=== PATIENT | female | born 1975 | race Caucasian/White ===

== ENCOUNTER 2022-11-07 12:35 | Emergency (ER) | payer MEDICARE, OTHER, SELFPAY ==
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
[2022-11-07 12:56] VITALS: BP 140/95; PULSE 80; RESP 18; TEMP 36.8; O2SAT 97
[2022-11-07 14:09] LABS: Basophils Absolute Auto 0.1 K/mm3 (0.0-0.1); Basophils Percent Auto 0.7 % (0.2-1.2); Eosinophils Absolute Auto 0.4 K/mm3 (0-0.3); Eosinophils Percent Auto 4.2 % (0-4.4); Hematocrit 41.5 % (37.0-47.0); Hemoglobin 13.7 g/dL (12.0-15.0); Immature Granulocyte Absolute 0.07 K/mm3 (0.00-0.031); Immature Granulocyte Percent A 0.8 % (0-0.5); Lymphocytes Absolute Auto 2.41 K/mm3 (0.9-3.2); Lymphocytes Percent Auto 26.8 % (18.3-44.2); Mean Corpuscular Hemoglobin 29.7 pg (26-34); Mean Platelet Volume 10.3 fl (7.4-10.4); Monocytes Absolute Auto 0.6 K/mm3 (0.1-0.6); Neutrophils Absolute Auto 5.4 K/mm3 (1.3-6.7); Neutrophils Percent Auto 60.5 % (45.5-73.1); Platelet Count Result 232 k/mm3 (150-375); Red Blood Count 4.61 M/mm3 (4.2-5.4); Red Cell Distribution Width 13.2 % (11.5-14.5)
[2022-11-07 14:20] LABS: Alanine Aminotransferase 24 U/L (6-35); Albumin Level 4.5 g/dL (3.5-5.1); Alkaline Phosphatase 72 U/L (38-126); Anion Gap 7 mmol/L (8-16); Aspartate Amino Transferase 30 U/L (14-36); Bilirubin,Total 0.4 mg/dL (0.2-1.3); Blood Urea Nitrogen 15 mg/dL (7-17); Calcium 9.4 mg/dL (8.4-10.2); Carbon Dioxide 37 mmol/L (22-30); Chloride 96 mmol/L (98-107); Estimated CRCL calculation 100 ml/min; Estimated Glomerular Filt Rate > 60; Glucose 138 mg/dL (65-110); Potassium 3.6 mmol/L (3.4-5.0); Sodium 140 mmol/L (137-145)
[2022-11-07 15:41] LABS: Appearance Urine Slightly Cloudy (Clear); Bilirubin Urine Negative (Negative); Blood Urine Negative (Negative); Color Urine Yellow (Yellow); Glucose Urine UA Negative (Negative); Ketones Urine Trace mg/dL (Negative); Leukocyte Esterase Ur Negative LEU/UL (Negative); Nitrate Urine Negative (Negative); Protein Urine 2+ mg/dL (Negative)
[2022-11-07 15:48] LABS: Bacteria Urine Trace /hpf; Mucus Urine Rare /lpf; Squamous Epithelial Cell Urine Few /hpf (Few); WBC Urine 0-3 /hpf
[2022-11-07 15:52] LABS: Add Urine Microscopic? YES
--- NOTE | 2022-11-07 16:36 | ED.GENADULT ---
HPI - General Adult General Chief complaint: Unspecified Stated complaint: constipation Time Seen by Provider: 11/07/22 15:14 History of Present Illness HPI narrative: Patient is a 47-year-old female who presents ER with concerns for constipation. Has not had a bowel movement in 3 days. She was given herself a saline enema, glycerin suppository, and has been taking Colace twice a day. She reports mild bloating. She does have some belching. Does not think she has passed gas. Has history of laparoscopy in the past. No fevers or chills or sweats. No chest pain chest pressure. Has not had much of an appetite. No alleviating factors. No aggravating factors. She is not on opiates. Review of Systems Constitutional: Constitutional: Denies chills and Denies fever(s) Gastrointestinal: Gastrointestinal: Denies abdominal pain, Reports bloating, Reports constipation, Denies nausea and Denies vomiting PMFSH Past Medical History Medical History (Updated 11/07/22 @ 17:48 by Kirill Gutierrez MD) Healthy female adult Surgical History Surgical History (Updated 11/07/22 @ 17:48 by Kirill Gutierrez MD) History of cholecystectomy Social History Social History (Updated 11/07/22 @ 17:48 by Kirill Gutierrez MD) Smoking status: Never smoker Exam Narrative: GENERAL: Well-appearing, well-nourished, and in no acute distress. HEAD: Normocephalic, atraumatic. CHEST: Clear to auscultation. No respiratory distress. HEART: Regular rate and rhythm. Normal peripheral pulses. ABDOMEN: Soft, nontender, nondistended, normal active bowel sounds. EXTREMITIES: Ambulates without difficulty. SKIN: Warm, dry, no rash. NEURO: Alert and oriented x3. PSYCH: Normal mood and affect. Course Course Emergency Course: Patient resting comfortably. Informed of results. Discharge home. Recommended fiber drain, continued Colace, and actually eating. Vital Signs Vital signs: Vital Signs Temperature 98.3 F 11/07/22 12:56 Pulse Rate 80 11/07/22 12:56 Respiratory Rate 18 11/07/22 12:56 Blood Pressure 140/95 H 11/07/22 12:56 Pulse Oximetry 97 11/07/22 12:56 Oxygen Delivery Room Air 11/07/22 12:56 Temperature 98.3 F 11/07/22 12:56 Pulse Rate 80 11/07/22 12:56 Respiratory Rate 18 11/07/22 12:56 Blood Pressure 140/95 H 11/07/22 12:56 Pulse Oximetry 97 11/07/22 12:56 Oxygen Delivery Room Air 11/07/22 12:56 Medical Decision Making Vital Signs Vital Signs: Vital Signs Temperature 98.3 F 11/07/22 12:56 Pulse Rate 80 11/07/22 12:56 Respiratory Rate 18 11/07/22 12:56 Blood Pressure 140/95 H 11/07/22 12:56 Pulse Oximetry 97 11/07/22 12:56 Oxygen Delivery Room Air 11/07/22 12:56 Temperature 98.3 F 11/07/22 12:56 Pulse Rate 80 11/07/22 12:56 Respiratory Rate 18 11/07/22 12:56 Blood Pressure 140/95 H 11/07/22 12:56 Pulse Oximetry 97 11/07/22 12:56 Oxygen Delivery Room Air 11/07/22 12:56 Lab Data 11/07/22 14:05 11/07/22 14:05 Labs: Lab Results 11/07/22 11/07/22 11/07/22 Range/Units 14:05 14:05 15:34 WBC 9.0 (4.5-10.0) K/mm3 RBC 4.61 (4.2-5.4) M/mm3 Hgb 13.7 (12.0-15.0) g/dL Hct 41.5 (37.0-47.0) % MCV 90.0 (80-100) fl MCH 29.7 (26-34) pg MCHC 33.0 (32-36) g/dl RDW 13.2 (11.5-14.5) % Plt Count 232 (150-375) k/mm3 MPV 10.3 (7.4-10.4) fl Immature Gran % (Auto) 0.8 H (0-0.5) % Neut % (Auto) 60.5 (45.5-73.1) % Lymph % (Auto) 26.8 (18.3-44.2) % [place] % (Auto) 7.0 (2.6-8.5) % Eos % (Auto) 4.2 (0-4.4) % Baso % (Auto) 0.7 (0.2-1.2) % Lymph # (Auto) 2.41 (0.9-3.2) K/mm3 [place] # (Auto) 0.6 (0.1-0.6) K/mm3 Eos # (Auto) 0.4 H (0-0.3) K/mm3 Baso # (Auto) 0.1 (0.0-0.1) K/mm3 Abs Immat Gran (auto) 0.07 H (0.00-0.031) K/mm3 Absolute Neuts (auto) 5.4 (1.3-6.7) K/mm3 Absolute Nucleated RBC 0.0 (0.0-0.012) K/mm3 Nucleated RB
== END 2022-11-07 17:56 | disposition home or self-care (01) ==
PROVIDERS: Physician Assistant; Emergency Provider Emergency Medicine
DX: K59.00 Constipation, unspecified (principal)
CPT/HCPCS: 36415; 74018; 80053; 81001; 85025; 99283

== ENCOUNTER 2025-03-07 13:34 | Emergency (ER) | payer MEDICARE, OTHER, SELFPAY ==
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
[2025-03-07 13:42] VITALS: BP 126/62; PULSE 79; RESP 18; TEMP 36.7; O2SAT 96
[2025-03-07 14:12] LABS: Add Urine Microscopic? NO; Appearance Urine Clear (Clear); Bilirubin Urine Negative (Negative); Blood Urine Negative (Negative); Color Urine Yellow (Yellow); Glucose Urine UA 3+ mg/dL (Negative); Ketones Urine Negative (Negative); Leukocyte Esterase Ur Negative LEU/UL (Negative); Nitrate Urine Negative (Negative); Protein Urine Negative (Negative); Specific Grav Ur 1.019 (1.001-1.035); pH Urine 5.5 (5.0-9.0)
[2025-03-07 15:52] VITALS: BP 124/76; PULSE 72; RESP 18; TEMP 36.9; O2SAT 95
--- NOTE | 2025-03-07 17:01 | ED_ITS ---
HPI - Weakness General Chief complaint: Weakness Stated complaint: Weakness with unresolved UTI Time Seen by Provider: 03/07/25 17:01 Source: patient Mode of arrival: ambulatory Limitations: no limitations History of Present Illness HPI Narrative: 49 years old white female came to the ED by private car from home with her complaining of feeling weak and tired since last night. Patient reports finishing a course of Cipro twice a day for 7 days for urinary tract infection recently. Most of the symptoms resolved except feeling hot urine coming out when she urinates. She denies any fever, chills, nausea, vomiting, diarrhea, complaining of right abdominal pain for a while, probably worse than before. History of diabetes, fatty liver disease, hypertension, hyperlipidemia, sleep apnea and currently on CPAP. Patient does not smoke or drink or use drugs, patient on baby aspirin once a day. Related Data Allergies Allergy/AdvReac Type Severity Reaction Status Date / Time propolis (bee glue) Allergy Severe Anaphylaxis Verified 03/07/25 14:00 shellfish derived Allergy Severe Anaphylaxis Verified 03/07/25 14:00 venom-honey bee Allergy Severe Anaphylaxis Verified 03/07/25 14:00 ibuprofen Allergy Intermediate Hives Verified 03/07/25 14:00 latex Allergy Mild Rash Verified 03/07/25 14:00 lurasidone Allergy Mild Swelling Verified 03/07/25 14:00 brexpiprazole Allergy Unknown Unknown Verified 03/07/25 14:00 codeine Allergy Unknown Unknown Verified 03/07/25 14:00 Gold Salts Allergy Unknown Unknown Verified 03/07/25 14:00 methylchloroisothiazolinone Allergy Unknown Unknown Verified 03/07/25 14:00 morphine Allergy Unknown Unknown Verified 03/07/25 14:00 neomycin Allergy Unknown Unknown Verified 03/07/25 14:00 nickel Allergy Unknown Unknown Verified 03/07/25 14:00 nitrofurantoin Allergy Unknown Unknown Verified 03/07/25 14:00 olanzapine Allergy Unknown Unknown Verified 03/07/25 14:00 prednisone Allergy Unknown Unknown Verified 03/07/25 14:00 thimerosal Allergy Unknown Unknown Verified 03/07/25 14:00 ziprasidone Allergy Unknown Unknown Verified 03/07/25 14:00 oleamidopropyl Allergy Unknown Unknown Uncoded 03/07/25 14:00 Review of Systems 2 Review of Systems: All systems reviewed & are unremarkable except as noted in HPI and below PMFSH Past Medical History Medical History Healthy female adult Surgical History Surgical History History of cholecystectomy Social History Social History Smoking status: Never smoker Exam 2 Narrative: General appearance: Well-developed, well-nourished Skin: Normal color Head: Normocephalic, nontraumatic Eyes: Clear conjunctiva ENT: Oropharynx normal, ears normal, nose normal Neck: Supple, nontender Chest and respiratory: Airway patent, no respiratory distress, no accessory muscle use Heart: Regular rate/rhythm Abdomen: Soft, right abdominal tenderness, no guarding or rebound, no organomegaly, quiet bowel sounds Vascular: Normal peripheral pulses, normal capillary refill. Musculoskeletal: Normal range of motion, nontender back Neurologic: Alert and oriented ?3, [employer] is normal as tested, no gross motor deficit Course Vital Signs Vital signs: Vital Signs Temperature 36.7 C 03/07/25 13:42 Pulse Rate 79 03/07/25 13:42 Respiratory Rate 18 03/07/25 13:42 Blood Pressure 126/62 03/07/25 13:42 Pulse Oximetry 96 03/07/25 13:42 Oxygen Delivery Room Air 03/07/25 13:42 Temperature 36.9 C 03/07/25 15:52 Pulse Rate 72 03/07/25 15:52 Respiratory Rate 18 03/07/25 15:52 Blood Pressure 124/76 03/07/25 15:52 Pulse Oximetry 95 03/07/25 15:52 Oxygen Delivery Room Air 03/07/25 13:42 MDM - Weakness MDM Narrative Medical decision making narrative: Patient came with general weakness and tiredness started last night Vital signs are stable Physical examination showing 6 [id number] tenderness right abdomen Differential diagnosis include electrolyte imbalance, dehydration, urinary tract infection, depression, diverticulitis, cholecystitis, appendicitis, constipation. Blood workup today includes CBC, CMP, lipase, TSH, showed blood glucose 216, AST 58, ALT 38, otherwise insignificant abnormality Urinalysis showed no evidence of infection CT abdomen pelvis with IV contrast showed hepatomegaly Chest x-ray showed no acute abnormality Diagnosis: Weakness of unknown etiology The pt was discharged to home.the pt,s condition upon discharge was fair,education was provided to the pt in reference to the final impression,discharge study results,treatment,prognosis and need for follow up . Lab Data 03/07/25 17:50 03/07/25 17:50 Labs: Lab Results 03/07/25 03/07/25 Range/Units 14:02 17:50 WBC 6.6 (4.5-10.0) K/mm3 RBC 4.31 (4.2-5.4) M/mm3 Hgb 12.7 (12.0-15.0) g/dL Hct 39.1 (37.0-47.0) % MCV 90.7 (80-100) fl MCH 29.5 (26-34) pg MCHC 32.5 (32-36) g/dl RDW 13.8 (11.5-14.5) % Plt Count 222 (150-375) k/mm3 MPV 10.7 H (7.4-10.4) fl Immature Gran % (Auto) 0.8 H (0-0.5) % Neut % (Auto) 45.7 (45.5-73.1) % Lymph % (Auto) 38.3 (18.3-44.2) % [place] % (Auto) 8.0 (2.6-8.5) % Eos % (Auto) 6.3 H (0-4.4) % Baso % (Auto) 0.9 (0.2-1.2) % Lymph # (Auto) 2.54 (0.9-3.2) K/mm3 [place] # (Auto) 0.5 (0.1-0.6) K/mm3 Eos # (Auto) 0.4 H (0-0.3) K/mm3 Baso # (Auto) 0.1 (0.0-0.1) K/mm3 Abs Immat Gran (auto) 0.05 H (0.00-0.031) K/mm3 Absolute Neuts (auto) 3.0 (1.3-6.7) K/mm3 Absolute Nucleated RBC 0.000 (0.0-0.012) K/mm3 Nucleated RBC % 0.0 (0.0-0.2) % Sodium 136 L (137-145) mmol/L Potassium 4.6 (3.4-5.0) mmol/L Chloride 102 (98-107) mmol/L Carbon Dioxide 27 (22-30) mmol/L Anion Gap 7 (4-12) mmol/L BUN 12 (7-17) mg/dL Creatinine 0.69 L (0.7-1.0) mg/dL Estim Creat Clear Calc 98 ml/min Estimated GFR > 60 (59 - ) Glucose 216 H (65-110) mg/dL Calcium 9.4 (8.4-10.2) mg/dL Total Bilirubin 0.7 (0.2-1.3) mg/dL AST 58 H (14-36) U/L ALT 38 H (6-35) U/L Alkaline Phosphatase 82 (38-126) U/L Total Protein 6.9 (6.3-8.2) g/dL Albumin 3.9 (3.5-5.1) g/dL TSH 1.980 (0.465-4.680) uIU/mL Urine Color Yellow (Yellow) Urine Appearance Clear (Clear) Urine pH 5.5 (5.0-9.0) Ur Specific [place] 1.019 (1.001-1.035) Urine Protein Negative (Negative) mg/dL Urine Glucose (UA) 3+ H (Negative) mg/dL Urine Ketones Negative (Negative) mg/dL Ur Blood (Man) Negative (Negative) Urine Nitrate Negative (Negative) Urine Bilirubin Negative (Negative) Urine Urobilinogen 1.0 (<2.0) mg/dL Leukocyte Esterase Rfl Negative (Negative) GINGER/UL Imaging Data Radiologist's impression: Impressions Chest X-Ray 03/07/25 17:54 IMPRESSION: No focal infiltrate or effusion. Abdomen/Pelvis CT 03/07/25 19:15 IMPRESSION: No obstructive uropathy. Significant hepatomegaly. Asymmetric enlargement of the left ovary, as detailed above. ECG Data EKG #1: ECG completion date: 03/07/25 Discharge Plan Discharge Clinical Impression: Weakness Patient Disposition: Home Condition: Stable Instructions: Fatigue (ED) Additional Instructions: Return if symptoms are worsening , call your family physician for appointment, take Tylenol as as needed for aches and pain, continue home medications. Patient Language: Slovenian Follow-up/Referrals: Kelvin,Kiran Frank PA-C [Primary Care Provider] -
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
--- OUTSIDE RECORDS SUMMARY | 2025-03-07 17:51 | XMS_ITS | Encounter Summary ---
Author Organization [facility] Healthcare Address [address] [place] [address] Care Team Providers Care Pari Mutuel Ticket Cashier Name Role Phone Kiran Warren Primary Care Provider Nicole Menon STRATEGIC ALLIANCES MANAGER Unavailable Alda Meza NP Unavailable [phone] Reno Lehman MD Unavailable [phone] Reason for Visit * Reason Onset Date Comments Hyperglycemia 02/10/2025 Encounter Details Date Type Department Care Team (Late st Contact Info) Description 03/02/2025 Nurse Triage [facility] Medical Group Family Medicine [address] [place] [address] Kiran Warren PA [address] [place] [address] Type 2 diabetes mellitus with hyperglycemia, without long-term current use of insulin (HCC) Social History Tobacco Use Types Packs/Day Years Used Date Smoking Tobacco: Never Smokeless Tobacco: Never Alcohol Use Standard Drinks/Week Comments Not Currently 0 (1 standard drink = 0.6 oz pur e alcohol) [facility] Utilities Answer Date Recorded In the past 12 months has [employer] electric, gas, oil, or water company threatened to shut off services in your home? No 06/01/2024 Social Connection and Isolation Panel [NHANES] A nswer Date Recorded In a typical week, how many times do you talk on the phone with family, friends, or neighbors? Three times a week 06/01/20 How often do you get togethe r with friends or relatives? Three times a week 06/01/2024 How often do you attend chur ch or orthodoxy services? Never 06/01/2024 Do you belong to any clubs o r organizations such as christian groups, unions, fraternal or athletic groups, or [...] any time in the past 12 m onths, were you homeless or living in a alf (including now)? No 06/01/2024 Personal Safety Answer Date Recorded Have you ever been in or are you currently in a harmful physical or emotional relationship or is someone making you feel afraid or unsafe? Denies 10/11/2024 Comments No Sex and Gender Information Value Date Recorded Sex Assigned at Not on file Legal Sex Female 7:53 PM SENIOR RELIABILITY ENGINEER Gender Identity Female 08/31/2018 9:15 AM SENIOR RELIABILITY ENGINEER Sexual Orientation Not on file Occupation Industry Job Start Date Job End Date Disabled Not on file Not on file Not on file documented as of this encounter Ordered Prescriptions Prescription Sig Dispense Quantity Refills Last Filled Start Date End Date insulin glargine 100 unit/mL (3 mL) pen for injectionIndicati ons:Type 2 diabetes mellitus with hyperglycemia, without long-term current use of insulin (HCC) Inject subcutaneous 15 units q hs 9 mL 03/02/2025 documented in this encounter Miscellaneous Notes * Telephone Encounter - Doerne Palmer LPN - 03/06/2025 9:28 AM CDT Scheduled appt. * Telephone Encounter - Dorene Palmer LPN - 03/05/2025 4:57 PM CDT LMTCB, please transfer to backline if patient calls back to schedule an appointment this week with Kiran. * Telephone Encounter - Kiran Warren PA - 03/05/2025 4:45 PM CDT Get in this week * Telephone Encounter - Phyllis Shaikh MA - 03/02/2025 11:59 AM CDT Pt informed of increase of dose. Pt will call back on Wednesday with readings. Pt states she will be leaving on 03/09 for vacation and returning 03/16. * Telephone Encounter - Marifer Pagan NP - 03/02/2025 11:48 AM CDT She is on 12 units of lantus, increase to 15 units, call Wednesday with update * Telephone Encounter - Asad Swanson RN - 03/02/2025 11:01 AM CDT Reason for Conversation Hyperglycemia Background Patient currently on Cipro, will complete antibiotics 03/03. Urinary symptoms improved. Patient reports her glucose continues to remain elevated over the last few weeks. 379 after breakfast today, Fasting 03/01- 327 02/27-334 02/26-457 02/25-440 Takes Lantus 12 units nightly. Routed to PCP office for further recommendation regarding glucose reading, possible medication adjustments, please advise Disposition Discuss With PCP and Callback by Nurse Within 1 Hour Reason for Disposition Blood glucose > 300 mg/dL (16.7 mmol/L) AND two or more times in a row Protocols Used Diabetes - High Blood [id number]-Quzjb-EX * Telephone Encounter - Asad Swanson RN - 03/02/2025 10:42 AM CDT Regarding: elevated blood sugar ----- Message from Yanira Thao sent at 03/02/2025 10:35 AM CDT ----- Symptom Based Call Chief Complaint(s): elevated blood sugar Duration: x 20 days What type of symptom(s) is the patient experiencing? Red Flag. Is the patient concerned they are experiencing a medical emergency requiring an ambulance? No Additional Comments: Patient had a triage on 02/27. Today her blood sugar is 379. She has not been taking her fenofibrate for about a month, she just restarted. She did not go to ER on 02/27, she states she text the provider directly to let her know, she is on an antibiotic, she is wondering if insulin can be increased Does message need to be routed? Yes-Action Needed documented in this encounter Plan of Treatment Upcoming Encounters Date Type Department Care Team (Latest Contact Info) Description 05/25/2025 9:16 AM CDT Hospital Encounter [facility] Operating Room [address] Sandra Cooperdorothy [address] [address] Roshni Agosto MD [address] [place] [address] 05/25/2025 9:16 AM CDT - 05/25/2025 11:46 AM CDT Surgery [facility] Operating Room [address] Sandra HayDawsonisiah [address] [address] Roshni Agosto MD [address] [place] [address] EXCHANGE IMPLANT BREAST Scheduled Procedures Name Priority [...] documented as of this encounter Visit Diagnoses Diagnosis Hx of breast reconstruction Breast replaced by other means Deformity of reconstructed breast Excessive and redundant skin and subcutaneous tissue Type 2 diabetes mellitus with hyperglycemia, without long-term current use of insulin (HCC) Hx of breast reconstruction Breast replaced by other means Deformity of reconstructed breast Excessive and redundant skin and subcutaneous tissue documented in this encounter Discontinued Medications Medication Sig Discontinue Reason Start Date End Da te insulin glargine 100 unit/mL (3 mL) pen for injectionIndications: Type 2 diabetes mellitus with hyperglycemia, without long-term current use of insulin (HCC) Inject subcutaneous 12 units q hs 01/02/2025 03/02/2025 documented as of this encounter Additional Health Concerns Active Problems [...] of Anxiety as between 5 and 9. Mcfp Goal/Discharge Criteria: Pt to early-identify thought/feeling triggers [...] fear of superficial talk, like at a constitution party, given I don't work, I don't [...] intensity level ranging between 5 and 9. Mcfp Goal/Discharge Criteria: Pt to early-identify thought/feeling triggers [...] documented as of this encounter Care Teams Pari Mutuel Ticket Cashier Relationship Specialty Start Date End Date Kiran Warren PA [address] [facility] [address] [place] [id number] PCP - General 12/09/20 Nicole Menon NP [address] [place] [id number] Obstetrics and Gynecology 12/25/22 Alda Meza NP [address] [facility] [address] [place] [id number] Nurse Practitioner Orthopedic Surgery 12/25/22 Reno Lehman MD [facility] [facility] [address] [place] [id number] Consulting Physician Psychiatry 12/25/22 documented as of this encounter
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
--- OUTSIDE RECORDS SUMMARY | 2025-03-07 17:51 | XMS_ITS | Encounter Summary ---
Author Organization [facility] Healthcare Address [address] [place] [address] Care Team Providers Care Machine Lacer Name Role Phone Kiran Warren Primary Care Provider Nicole Menon FELT COVERER Unavailable Alda Meza NP Unavailable [phone] Reno Lehman MD Unavailable [phone] Reason for Visit * Reason Onset Date Comments Medical Question/Miscellaneous 03/05/2025 Encounter Details Date Type Department Care Team (Late st Contact Info) Description 03/05/[address] [facility] Medical Group Family Medicine [address] [facility] [address] [place] [address] Kiran Warren PA [address] [place] [address] Medical Question/Miscellaneous Social History Tobacco Use Types Packs/Day Years Used Date Smoking Tobacco: Never Smokeless Tobacco: Never Alcohol Use Standard Drinks/Week Comments Not Currently 0 (1 standard drink = 0.6 oz pur e alcohol) [facility] Utilities Answer Date Recorded In the [...] often do you attend chur ch or baptist services? Never 06/01/2024 Do you belong to any clubs o r organizations such as episcopal groups, unions, fraternal or athletic groups, or [...] any time in the past 12 m [facility], were you homeless or living in a prison (including now)? No 06/01/2024 Personal Safety Answer Date Recorded Have you ever been in or are you currently in a harmful physical or emotional relationship or is someone making you feel afraid or unsafe? 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 Yes-Action Needed documented in this encounter Plan of Treatment Upcoming Encounters Date Type Department Care Team (Latest Contact Info) Description 05/25/2025 9:16 AM CDT Hospital Encounter [facility] Operating Room [address] [address] Roshni Agosto MD [address] [place] [address] 05/25/2025 9:16 AM CDT - 05/25/2025 11:46 AM CDT Surgery [facility] Operating Room [address] [address] Roshni Agosto MD [address] [place] [address] EXCHANGE IMPLANT BREAST Scheduled Procedures Name Priority [...] of Anxiety as between 5 and 9. Laborer Chemical Processing Goal/Discharge Criteria: Pt to early-identify thought/feeling triggers [...] fear of superficial talk, like at a libertarian, given I don't work, I don't know [...] intensity level ranging between 5 and 9. Alf Goal/Discharge Criteria: [...] documented as of this encounter Care Teams Machine Lacer Relationship Specialty Start Date End Date Kiran Warren PA [address] [facility] [address] [place] [address] [address] [place] [address] PCP - General 12/09/20 Nicole Menon NP [address] [place] [address] Obstetrics and Gynecology 12/25/22 Alda Meza NP [facility] [address] [place] [address] Nurse Practitioner Orthopedic Surgery 12/25/22 Reno Lehman MD [facility] [address] [place] [address] Consulting Physician Psychiatry 12/25/22 documented as of this encounter
--- OUTSIDE RECORDS SUMMARY | 2025-03-07 17:51 | XMS_ITS | Encounter Summary ---
Author Organization [facility] Address [address] [place] [address] Care Team Providers Care Guest Relations Receptionist Name Role Phone Lukas Melchor MD Primary Care Provi gabriel Encounter Details Date Type Department Care Team (Late st Contact Info) Description 09/07/2019 Lab Requisition [facility] DermPath Lab [address] [facility] [place] [place] [id number] Cira Hernandez DO [address] [facility] 3 [place] [address] Social History Tobacco Use Types Packs/Day Years Used Date Smoking Tobacco: Never Alcohol Use Standard Drinks/Week Comments No 0 (1 standard drink = 0.6 oz pur e alcohol) Comments Unknown Sex and Gender Information Value Date Recorded Sex Assigned at Not on file Legal Sex Female 5:41 PM ZIGZAGGER Gender Identity Not on file Sexual Orientation Not on file documented as of this encounter Plan of Treatment Not on file documented as of this encounter Procedures Procedure Name Priority Date/Time Associated Diagnosis Comments IMMUNOFLUORESCENT STUDY DERM Routine 09/06/2019 12:00 AM ZIGZAGGER documented in this encounter Results * IMMUNOFLUORESCENT STUDY DERM (09/06/2019 12:00 AM ZIGZAGGER) Case Report Dermatopathol ogy Report Case: [id number] Authorizing Provider: Cira Hernandez DO Collected: 09/06/2019 12:00 AM Ordering Location: [facility] DermPath Lab Received: 09/07/2019 10:21 AM Pathologist: Anna Infante MD Specimen: Skin, left inner arm perilesional 4:57 PM [facility] DERMATOPATHOLOGY LABORATORY Final Diagnosis Specimen A. SKIN, left inner arm perilesional: NO IMMUNOPATHOLO GICAL ABNORMALITY (L98.9) (see fixed tissue results) ([id number]) 4:57 PM [facility] DERMATOPATHOLOGY LABORATORY at 1657 ZIGZAGGER Direct Immunofluorescence Report - Specimen A Specimen A IgA IgM IgG C3 CollV Fibrinogen Epidermis Negative Negative Negative Negative Negative Negative Basement Membrane Negative Negative Negative Negative 2+ Negative Vessels Negative Negative Negative Negative 2+ Negative Interstitium Negative Negative Negative Negative Negative Non specific 4:57 PM [facility] DERMAT[facility]OR[facility]ORY Clinical History [place] scaly edematous papules ACD vs CTD vs immunobullous vs other. 4:57 PM [facility] DERMATOPATHOLOGY [facility]ORAT[facility] Gross Description Specimen A: Received is one Asa's media filled container labeled with the patient's name and designated left inner arm perilesional. The specimen consists of a punch measuring [id number]. The specimen is submitted in whole for direct immunofluores cence testing. 4:57 PM [facility] DERMATOPATHOLOGY LABORATORY Microscopic Description Specimen A. SKIN, left inner arm perilesional: Controls were run in parallel. Staining is negative with IgA, IgM, IgG, and C3. Collagen IV stains the basement membrane zone and vessels. Fibrinogen shows non-specific staining. A hematoxylin and eosin stained frozen section shows no significant inflammation. See fixed tissue results. 4:57 PM [facility] DERMATOPATHOLOGY LABORATORY Disclaimer An external and internal positive and negative controls are appropriate for the histochemical , immunohistoch emical and immunofluores cence stain(s) in this case (if any), except where stated explicitly. The performance characteristi cs of the stain(s) cited in this report were developed and its performance characteristi c determined by the Dermatopathol ogy Laboratory at [facility], directed by Dr. Patric Jones. These tests need not be, and therefore are not, approved by the [place] Food and Drug Administratio n. The tests are used for clinical purposes. Billing Codes Specimen Charges Stain Charges 41964 78066 06422 93055 51647 07981 1 1 1 1 1 1 9 4:57 PM [facility] DERMATOP[facility] LABORATORY Embedded Images 9 4:57 PM [facility]ERMAT[facility]ORY Pathology/Cytolog y TISSUE SPECIMEN FROM SKIN / Unknown 09/06/2019 09/07/2019 10:21 AM ZIGZAGGER us Cira Hernandez DO LAB - PATHOLOGY/CYTOLOGY ORDERABLES Final Result DERMATOPATHOLOGY LABORATORY [facility] - Department of Dermatology [address] [place] [address], 5th Floor Lab [address] [phone] documented in this encounter Visit Diagnoses Not on filedocumented in this encounter Care Teams Guest Relations Receptionist Relationship Specialty Start Date End Date Lukas Melchor MD PCP - General 11/30/16 documented as of this encounter
--- OUTSIDE RECORDS SUMMARY | 2025-03-07 17:51 | XMS_ITS | Encounter Summary ---
Author Organization [facility] Address [address] [place] [address] Care Team Providers Care Unbundler Name Role Phone Lukas Melchor MD Primary Care Provi gabriel Encounter Details Date Type Department Care Team (Late st Contact Info) Description 01/08/2025 Lab Requisition [facility] - DermPath Lab [address] [facility] [place] [address] Netta Gomez MD [address] [facility] 3 [place] [address] Social History Tobacco Use Types Packs/Day Years Used Date Smoking Tobacco: Never Smokeless Tobacco: Never Alcohol Use Standard Drinks/Week Comments No 0 (1 standard drink = 0.6 oz pur e alcohol) Comments Unknown Sex and Gender Information Value Date Recorded Sex Assigned at Not on file 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 Gender Identity Not on file Sexual Orientation Not on file documented as of this encounter Plan of Treatment Not on file documented as of this encounter Procedures Procedure Name Priority Date/Time Associated Diagnosis Comments DERMATOPATHOLOGY Routine 01/08/2025 12:5 8 PM CDT documented in this encounter Results * DERMATOPATHOLOGY (01/08/2025 12:58 PM CDT) Case Report Dermatopathology Report Case: [id number] Authorizing Provider: Netta Gomez MD Collected: 01/08/2025 12:58 PM Ordering Location: [facility] - Received: 01/09/2025 01:12 PM DermPath Lab Pathologist: Anna Infante MD Specimens: A) - Skin, right breast B) - Skin, right superior pubic 2:08 PM T DERMATOPATHOLOGY LABORATORY Final Diagnosis Specimen A. SKIN, right breast: SEBORRHEIC KERATOSIS, IRRITATED AND INFLAMED (L82.0) Specimen B. SKIN, right superior pubic: INTRADERMAL MELANOCYTIC NEVUS WITH CONGENITAL FEATURES (D22.9) 2:08 PM CDT DERMATOPATHOLOGY LABORATORY at 1408 CDT Clinical History A: SK vs Nevus; R/O Atypia B: ID Nevus vs Tag 2:08 PM CDT DERMATOPATHOLOGY LABORATORY Gross Description Specimen A: Received is one formalin filled container labeled with the patient's name and designated right breast. The specimen consists of a shave biopsy measuring 14x9x3 mm. Jar 0. Specimen B: Received is one formalin filled container labeled with the patient's name and designated right superior pubic. The specimen consists of a shave biopsy measuring [id number] mm. Jar 0. 2:08 PM CDT DERMATOPATHOLOGY LABORATORY Microscopic Description Specimen A. SKIN, right breast: Sections show acanthosis, papillomatosis, hyperkeratosis, and squamous eddies. There is a lymphohistiocytic infiltrate within the papillary dermis. Specimen B. SKIN, right superior pubic: There are nests of cytologically bland melanocytes within the dermis. Some of these melanocytes are concentrated around blood vessels and adnexal structures. 2:08 PM CDT DERMATOPATHOLOGY LABORATORY Disclaimer An external and internal positive and negative controls are appropriate for the histochemical, immunohistochemical and immunofluorescence stain(s) in this case (if any), except where stated explicitly. The performance characteristics of the stain(s) cited in this report were developed and its performance characteristic determined by the Dermatopathology Laboratory at [facility], directed by Dr. Patric Jones. These tests need not be, and therefore are not, approved by the [place] Food and Drug Administration. The tests are used for clinical purposes. Billing Codes Specimen Charges Stain Charges 35654 24392 1 1 04/23/202 5 2:08 PM CDT DERMATOPATHOLOGY LABORATORY Embedded Images 5 2:08 PM CDT DERMATOPATHOLOGY LABORATORY Pathology/Cytology TISSUE SPECIMEN FROM SKIN / Unknown 01/08/2025 12:58 PM CDT 01/09/2025 1:12 PM CDT Miscellaneous samples (specimen) TISSUE SPECIMEN FROM SKIN / Unknown 01/08/2025 12:58 PM CDT 01/09/2025 1:12 PM CDT Netta Gomez MD LAB - PATHOLOGY/CYTOLOGY OR DERABLES Final Result DERMATOPATHOLOGY LABORATORY [facility] - Department of Dermatology [facility] [address] [place] [address], [address] [phone] documented in this encounter Visit Diagnoses Not on filedocumented in this encounter Care Teams Unbundler Relationship Specialty Start Date End Date Lukas Melchor MD PCP - General 11/30/16 documented as of this encounter
--- OUTSIDE RECORDS SUMMARY | 2025-03-07 17:51 | XMS_ITS | Clinical Summary ---
Author Organization [facility] [employer] Address [facility] [place] [address] Care Team Providers Care Farm Machinery Erector Name Role Phone Lukas Melchor MD Primary Care Provi gabriel Source Comments [facility] [employer],non-owned Affiliates and Associated Physician Practices is amultiple site organization consisting of ambulatory clinics and hospital sitesin [place], [place], [place] and [place]. This disclosure is being madepursuant to the Care Everywhere program and may not contain all information available regarding this patient. Last updated 18.[facility] [employer] Allergies No known active allergies Medications * Be aware that medications may not be up to date on this document. Alwaysverify current medications with the patient. NIR-GEBT-UTVSRG ITAL-CODEINE (BUTALBITAL COMPOUND-CODEIN E) [id number] MG CAPS Take by mouth. 7 Active fenofibrate (LOFIBRA) 160 MG tablet Take 160 mg by mouth DAILY. 7 Active [place]-3 Fatty Acids (FISH OIL) 1000 MG capsule Take 1,000 mg by mouth 3 times daily with meals. 7 Active metOLazone (ZAROXOLYN) 5 MG tablet Take 5 mg by mouth DAILY. 7 Active FLUoxetine (PROZAC) 40 MG capsule Take 40 mg by mouth DAILY. 7 Active modafinil (PROVIGIL) 200 MG tablet Take 200 mg by mouth DAILY. 7 Active buPROPion XL 24hr (WELLBUTRIN-XL) 150 MG tablet Take 150 mg by mouth Every Morning. 7 Active cetirizine (ZYRTEC) 10 MG tablet Take 10 mg by mouth DAILY. 7 Active vitamin D, cholecalciferol , 2000 UNITS tablet Take by mouth. Active memantine ER 24 hr (NAMENDA XR) 7 MG capsule Take by mouth. 7 Active carvedilol (COREG) 6.25 MG tablet Take 6.25 mg by mouth 2 times daily with morning and evening meal. Active ALPRAZolam (XANAX) 1 MG tablet Take 1 mg by mouth. Active dicyclomine (BENTYL) 10 MG capsule Take 10 mg by mouth. Active donepezil (ARICEPT) 5 MG tablet Take 5 mg by mouth. Active esomeprazole (NEXIUM) 40 MG capsule Take 40 mg by mouth. Active clobetasol (TEMOVATE) 0.05 % ointment 60 g 3 7 Active Additional Information Patient taking differently: Topical 2 TIMES DAILY PRN, Reported on 12/07/2019 atenolol (TENORMIN) 50 MG tablet Take 1 tablet by mouth once daily 0 Active EPINEPHrine (EPIPEN) 0.3 MG/0.3ML auto-injector pen as needed For allergic reaction 9 Active ezetimibe-simva statin (VYTORIN) 10-20 MG tablet Take 1 tablet by mouth once daily 0 Active potassium chloride ER (KLOR-CON M) 20 MEQ tablet Take 1 tablet by mouth 2 times daily 0 Active furosemide (LASIX) 20 MG tablet Take 1 tablet by mouth once daily 0 Active temazepam (RESTORIL) 15 MG capsule Take 15 mg by mouth 1-2 daily prn 9 Active memantine ER 24 hr (NAMENDA XR) 28 MG capsule Take 28 mg by mouth once daily Active buPROPion XL 24hr (WELLBUTRIN-XL) 300 MG tablet Take 300 mg by mouth every morning Active hydrOXYzine hcl (ATARAX) 25 MG tablet Take 1-3 tablets nightly, as needed. 30DS 90 tablet 11 0 Active mupirocin (BACTROBAN) 2 % ointment Apply to affected area 3 times daily Apply to cuts and scrapes tid as needed 22 g 2 0 Active Active Problems Problem Noted Date Diagnosed Date Chronic chest wall pain 09/25/2019 Non-alcoholic fatty liver disease 09/25/2019 Right upper quadrant abdominal pain 09/25/2019 Gastroesophageal reflux disease 02/16/2019 Prediabetes 02/16/2019 Obstructive sleep apnea (adult) (pediatric) 05/22 Menopausal menorrhagia 03/18/2018 Vitamin D deficiency 03/03/2017 Polydipsia 02/10/2017 Anxiety 06/04/2016 Fatigue 06/04/2016 Hyperlipidemia 06/04/2016 Hypertension 03/19/2016 Other abnormal glucose 03/19/2016 Pure hypercholesterolemia 03/19/2016 Irregular menstrual cycle 07/03/2013 Pain in female pelvis 10/21/2012 Ovarian retention cyst 09/14/2012 Encounters Date Type Department Care Team Description 01/08/2025 Lab Requisition [facility] - DermPath Lab [address] [facility], [place] [address] Netta Gomez MD from Last 3 Months Immunizations Immunization Administration Dates Next Due INFLUENZA VACCINE, TRIV. (AF LURIA, FLUZONE TRIVALENT; 6MO+) (IIV3) 06/28/2018 FLU VACCINE TRI IIV3 SPLIT PF IM (FLUVIRIN) 05/23 INFLUENZA VACCINE, QUADR. (F LUZONE; FLULAVAL; FLUARIX; AFLURIA QUADRIVALENT; 6MO+), 0.5 ML (IIV4) 11/07/2014 Family History Medical History Relation Name Comments None Known Brother None Known Father None Known Maternal Aunt None Known Maternal Grandfather None Known Maternal Grandmother None Known Maternal Uncle Cancer - Breast Mother Cancer - Other Mother Cancer - Skin, Non Melanoma Mother None Known Other None Known Paternal Aunt None Known Paternal Grandfather None Known Paternal Grandmother None Known Paternal Uncle None Known Sister Allergy (Severe) Neg Hx Asthma Neg Hx CVA Neg Hx Cancer Neg Hx Cancer - Skin, Melanoma Neg Hx Eczema Neg Hx Hemophilia Neg Hx Psoriasis Neg Hx Rashes/Skin Problems Neg Hx Relation Name Status Comments Brother Father Maternal Aunt Maternal Grandfather Maternal Grandmother Maternal Uncle Mother Other Paternal Aunt Paternal Grandfather Paternal Grandmother Paternal Uncle Sister Social History Tobacco Use Types Packs/Day Years Used Date Smoking Tobacco: Never Smokeless Tobacco: Never Alcohol Use Standard Drinks/Week Comments No 0 (1 standard drink = 0.6 oz pur e alcohol) Comments Unknown Sex and Gender Information Value Date Recorded Sex Assigned at Not on file Legal Sex Female 5:41 PM FARM SERVICE ADVISER Gender Identity Not on file Sexual Orientation Not on file Plan of Treatment Health Maintenance Due Date Last Done Comments COLOGUARD (AGES 45-75) - COL ON CA SCREENING 1974 COLON MONITORING 1974 COLONOSCOPY - COLON CA SCREENING 1974 CT COLONOGRAPHY - COLON CA SCREENING 1974 Colorectal Cancer Screening 1974 FIT - COLON CA SCREENING 1974 FLEX SIG - COLON CA SCREENING 1974 MAMMOGRAM 1974 MEDICARE AWV 12 MONTHS 1974 HIV SCREENING 1989 HEPATITIS C SCREENING 08/24/1992 DTAP/TDAP/TD VACCINES (1 - Tdap) 1993 HEPATITIS B VACCINE (1 of 3 - 19+ 3-dose series) 1993 PAP with HPV 2004 COVID-19 VACCINE (1 - 2023-2 5 season) 2024 PNEUMOCOCCAL VACCINE 50+ (1 of 1 - PCV) 2024 ZOSTER VACCINE (1 of 2) 2024 DEPRESSION SCREENING 09/20/2024 INFLUENZA VACCINE (Season Ended) 2025 06/28/2018, 06/19/2016, 11/07/2014 HIB VACCINE Aged Out No longer eligi ble based on patient's age to complete this topic HPV VACCINE Aged Out No longer eligi ble based on patient's age to complete this topic MENINGOCOCCAL (Group B) VACCINE SHARED DECISION-MAKING Aged Out No longer eligible based on patient's age to complete this topic MENINGOCOCCAL GROUPS A/C/Y/W VACCINE Aged Out No longer eligible b ased on patient's age to complete this topic Procedures Procedure Name Priority Date/Time Associated Diagnosis Comments DERMATOPATHOLOGY Routine 01/08/2025 12:5 8 PM CDT from Last 3 Months Results * DERMATOPATHOLOGY (01/08/2025 12:58 PM CDT) Case Report Dermatopathology Report Case: [id number] Authorizing Provider: Netta Gomez MD Collected: 01/08/2025 12:58 PM Ordering Location: [facility] - Received: 01/09/2025 01:12 PM DermPath Lab Pathologist: Anna Infante MD Specimens: A) - Skin, right breast B) - Skin, right superior pubic 2:08 PM CDT DERMATOPATHOLOGY LABORATORY Final Diagnosis Specimen A. SKIN, [...] specimen consists of a shave biopsy measuring [id number] mm. Jar 0. 2:08 PM CDT DERMATOPATHOLOGY [...] characteristic determined by the Dermatopathology Laboratory at [facility], directed by Dr. Patric Jones. These tests need not be, and therefore are not, approved by the [place] Food and Drug Administration. The tests are used for clinical purposes. Billing Codes Specimen Charges Stain Charges 47131 99342 1 1 5 2:08 PM CDT DERMATOPATHOLOGY LABORATORY Embedded Images 5 2:08 PM CDT DERMATOPATHOLOGY LABORATORY Pathology/Cytology TISSUE SPECIMEN FROM SKIN / Unknown 01/08/2025 12:58 PM CDT 01/09/2025 1:12 PM CDT Miscellaneous samples (specimen) TISSUE SPECIMEN FROM SKIN / Unknown 01/08/2025 12:58 PM CDT 01/09/2025 1:12 PM CDT Netta Gomez MD LAB - PATHOLOGY/CYTOLOGY OR DERABLES Final Result DERMATOPATHOLOGY LABORATORY [facility] - Department of Dermatology [facility] [address] [place] [address], [address] [phone] from Last 3 Months Insurance MEDICARE [facility] MEDICARE [employer] Care Teams Farm Machinery Erector Relationship Specialty Start Date End Date Lukas Melchor MD PCP - General 11/30/16
--- OUTSIDE RECORDS SUMMARY | 2025-03-07 17:51 | XMS_ITS | Encounter Summary ---
Author Organization [facility] Address [address] [place] [address] Care Team Providers Care Clinical Microbiologist Name Role Phone Lukas Melchor MD Primary Care Provi gabriel Encounter Details Date Type Department Care Team (Late st Contact Info) Description 09/07/2019 Lab Requisition [facility] DermPath Lab [address] [facility], [place] [phone] Cira Hernandez DO [address] [facility] 3 [place] [address] Social History Tobacco Use Types Packs/Day Years Used Date Smoking Tobacco: Never Alcohol Use Standard Drinks/Week Comments No 0 (1 standard drink = 0.6 oz pur e alcohol) Comments Unknown Sex and Gender Information Value Date Recorded Sex Assigned at Not on file Legal Sex Female 5:41 PM SSAS DEVELOPER Gender Identity Not on file Sexual Orientation Not on file documented as of this encounter Plan of Treatment Not on file documented as of this encounter Procedures Procedure Name Priority Date/Time Associated Diagnosis Comments DERMATOPATHOLOGY Routine 09/06/2019 12:0 0 AM SSAS DEVELOPER documented in this encounter Results * DERMATOPATHOLOGY (09/06/2019 12:00 AM SSAS DEVELOPER) Case Report Dermatopathology Report Case: [id number] Authorizing Provider: Cira Hernandez DO Collected: 09/06/2019 12:00 AM Ordering Location: [facility] DermPath Lab Received: 09/07/2019 10:19 AM Pathologist: Anna Infante MD Specimen: Skin, left upper arm lesional 4:57 PM [facility] DERMATOPATHOLOGY LABORATORY Final Diagnosis Specimen A. SKIN, left upper arm lesional: SPONGIOTIC DERMATITIS WITH EOSINOPHILS (L30.8) (see microscopic description and comment) (see direct immunofluorescence results) ([id number]) 4:57 PM [facility] DERMATOPATHOLOGY LABORATORY at 1657 SSAS DEVELOPER Clinical History [place] scaly edematous papules. ACD vs CTD vs immunobullous vs other. 4:57 PM [facility] DERMATOPATHOLOGY LABORATORY Gross Description Specimen A: Received is one formalin filled container labeled with the patient's name and designated left upper arm lesional. The specimen consists of a punch measuring [id number], bisected. Jar 0. 4:57 PM [facility] DERMATOPATHOLOGY LABORATORY Microscopic Description Specimen A. SKIN, left upper arm lesional: There is focal parakeratosis and spongiosis. In the dermis there is a mainly superficial perivascular lymphohistiocytic inflammatory infiltrate with eosinophils. COMMENT: The histological differential diagnosis includes a contact dermatitis, an eczematous drug eruption, and less likely the urticarial phase of bullous pemphigoid. See direct immunofluorescence results. 4:57 PM [facility] DERMATOPATHOLOGY LABORATORY Disclaimer An external and internal positive and negative controls are appropriate for the histochemical, immunohistochemical and immunofluorescence stain(s) in this case (if any), except where stated explicitly. The performance characteristics of the stain(s) cited in this report were developed and its performance characteristic determined by the Dermatopathology Laboratory at [facility], directed by Dr. Patric Jones. These tests need not be, and therefore are not, approved by the [place] Food and Drug Administration. The tests are used for clinical purposes. Billing Codes Specimen Charges Stain Charges 85157 1 4:57 PM [facility] DERMATOPATHOLOGY LABORATORY Embedded Images 4:57 PM [facility] DERMATOPATHOLOGY LABORATORY Pathology/Cytolog y TISSUE SPECIMEN FROM SKIN / Unknown 09/06/2019 09/07/2019 10:19 AM [facility] us Cira Hernandez DO LAB - PATHOLOGY/CYTOLOGY ORDERABLES Final Result DERMATOPATHOLOGY LABORATORY [facility] - Department of Dermatology [facility] [facility], 5th Floor Lab B [address] [phone] documented in this encounter Visit Diagnoses Not on filedocumented in this encounter Care Teams Clinical Microbiologist Relationship Specialty Start Date End Date Lukas Melchor MD PCP - General 11/30/16 documented as of this encounter
--- OUTSIDE RECORDS SUMMARY | 2025-03-07 17:51 | XMS_ITS | Encounter Summary ---
Author Organization [facility] Address [address] [place] [address] Care Team Providers Care Design Center Consultant Name Role Phone Lukas Melchor MD Primary Care Provi gabriel Encounter Details Date Type Department Care Team (Late st Contact Info) Description 10/13/[address] [facility] DermPath Lab [address] [facility], [place] [id number] Cira Hernandez DO [address] [facility] 3 [place] [address] Social History Tobacco Use Types Packs/Day Years Used Date Smoking Tobacco: Never Alcohol Use Standard Drinks/Week Comments No 0 (1 standard drink = 0.6 oz pur e alcohol) Comments Unknown Sex and Gender Information Value Date Recorded Sex Assigned at Not on file Legal Sex Female 5:41 PM OUTREACH WORKER Gender Identity Not on file Sexual Orientation Not on file documented as of this encounter Plan of Treatment Not on file documented as of this encounter Procedures Procedure Name Priority Date/Time Associated Diagnosis Comments DERMATOPATH TECHNICAL REPORT Routine 10/11/2018 12:00 AM OUTREACH WORKER documented in this encounter Results * DERMATOPATH TECHNICAL REPORT (10/11/2018 12:00 AM OUTREACH WORKER) Case Report Dermatopathology Report Case: [id number] Authorizing Provider: Cira Hernandez DO Collected: 10/11/2018 12:00 AM Pathologist: Erik Jones MD Received: 10/13/2018 06:49 AM Specimen: Skin, right chest 2:22 PM [facility] DERMATOPATHOLOGY LABORATORY Clinical History Acrochordon vs nevus. Irritated. 2:22 PM [facility] DERMATOPATHOLOGY LABORATORY Gross Description Specimen A: Received is one formalin filled container labeled with the patient's name and designated right chest. The specimen consists of a shave (4 pieces) measuring [id number], [id number], submitted in cassette 1, [id number], & [id number], submitted in cassette 2. Jar 0. [facility] Dermatopathology Laboratory performed the technical component only. 2:22 PM [facility] DERMATOPATHOLOGY LABORATORY Embedded Images 2:22 PM [facility] DERMATOPATHOLOGY LABORATORY DISCLAIMER An external and internal positive and negative controls are appropriate for the histochemical, immunohistochemical and immunofluorescence stain(s) in this case (if any), except where stated explicitly. The performance characteristics of the stain(s) cited in this report were developed and its performance characteristic determined by the Dermatopathology Laboratory at [facility], directed by Dr. Patric Jones. These tests need not be, and therefore are not, approved by the [place] Food and Drug Administration. The tests are used for clinical purposes. 2:22 PM [facility] DERMATOPATHOLOGY LABORATORY at 1422 OUTREACH WORKER Pathology/Cytolog y TISSUE SPECIMEN FROM SKIN / Unknown 10/11/2018 10/13/2018 6:49 AM OUTREACH WORKER Cira Hernandez DO LAB - PATHOLOGY/CYTOLOGY ORDERABLES Final Result DERMATOPATHOLOGY LABORATORY [facility] - Department of Dermatology [address] [place] [address], 5th [place] [address], [facility] [phone] documented in this encounter Visit Diagnoses Not on filedocumented in this encounter Care Teams Design Center Consultant Relationship Specialty Start Date End Date Lukas Melchor MD PCP - General 11/30/16 documented as of this encounter
--- OUTSIDE RECORDS SUMMARY | 2025-03-07 17:51 | XMS_ITS | Encounter Summary ---
Author Organization [facility] Address [address] [place] [address] Care Team Providers Care Inside Finisher Name Role Phone Kiran Warren Primary Care Provider Nicole Menon CREDIT COLLECTION SPECIALIST Unavailable Alda Meza NP Unavailable [phone] Reno Lehman MD Unavailable [phone] Encounter Details Date Type Department Care Team (Late st Contact Info) Description 02/21/2025 Telephone [facility] Medical [facility] Family Medicine [address] [place] [address] Kiran Warren PA [address] [place] [address] Social History Tobacco Use Types Packs/Day Years Used Date Smoking Tobacco: Never Smokeless Tobacco: Never Alcohol Use Standard Drinks/Week Comments Not Currently 0 (1 standard drink = 0.6 oz pur e alcohol) [facility] Utilities Answer Date Recorded In the past [...] often do you attend chur ch or caodaism services? Never 06/01/2024 Do you belong to any clubs o r organizations such as baptism groups, unions, fraternal or athletic groups, or [...] time in the past 12 m [facility], were you homeless or living in a long term (including now)? No 06/01/2024 Personal Safety Answer Date Recorded Have you ever been in or are you currently in a harmful physical or emotional relationship or is someone making you feel afraid or unsafe? Denies 10/11/2024 Comments No Sex and Gender Information Value Date Recorded Sex Assigned at Not on file Legal Sex Female 7:53 PM PRODUCT SAFETY LEAD Gender Identity Female 08/31/2018 9:15 AM PRODUCT SAFETY LEAD Sexual Orientation Not on file Occupation Industry Job Start Date Job End Date Disabled Not on file Not on file Not on file documented as of this encounter Miscellaneous Notes * Telephone Encounter - Audrey Boland - 02/21/2025 7:32 AM CDT AC made in error documented in this encounter Plan of Treatment Upcoming Encounters Date Type Department Care Team (Latest Contact Info) Description 05/25/2025 9:16 AM CDT Hospital Encounter [facility] Operating Room [address] [address] Roshni Agosto MD [address] [facility] [address] [place] [address] 05/25/2025 9:16 AM CDT - 05/25/2025 11:46 AM CDT Surgery [facility] Operating Room [address] [address] [address] Roshni Agosto MD [address] [place] [address] EXCHANGE IMPLANT BREAST Scheduled Procedures Name Priority [...] end of next tx plan review/update period. documented as of this encounter Visit Diagnoses [...] of Anxiety as between 5 and 9. Care Home Goal/Discharge Criteria: Pt to early-identify thought/feeling triggers [...] intensity level ranging between 5 and 9. Bowling Alley Mechanic Goal/Discharge Criteria: Pt to early-identify thought/feeling triggers [...] Persistent disorder of initiating or maintaining sleep documented as of this encounter Care Teams Inside Finisher Relationship Specialty Start Date End Date Kiran Warren PA [address] [place] [address] [place] [address] PCP - General 12/09/20 Nicole Menon NP [facility] [id number] Obstetrics and Gynecology 12/25/22 Alda Meza NP [address] [facility] [address] [place] [address] [place] [address] Nurse Practitioner Orthopedic Surgery 12/25/22 Reno Lehman MD [address] [facility] [address] [place] [address] [place] [address] Consulting Physician Psychiatry 12/25/22 documented as of this encounter
--- OUTSIDE RECORDS SUMMARY | 2025-03-07 17:52 | XMS_ITS | Encounter Summary ---
Author Organization [facility] Care Team Providers Care Telephone Mechanic Name Role Phone Lukas Melchor MD Primary Care Provi gabriel Janeth Granados LPN Unavailable [phone] Kiran Warren Primary Care Provider Nicole Menon PHARMACEUTICAL SERVICE REPRESENTATIVE Unavailable Alda Meza PHARMACEUTICAL SERVICE REPRESENTATIVE Unavailable [phone] Reno Lehman MD Unavailable [phone] Encounter Details Date Type Department Care Team (Latest Contact Info) Description 02/04/2015 Orders Only [facility]INCON[facility] ProviderAddison MD [address] [place] [address] Social History Tobacco Use Types Packs/Day Years Used Date Smoking Tobacco: Never Comments Unknown Sex and Gender Information Value Date Recorded Sex Assigned at Not on file Legal Sex Female 7:53 PM SHADOWGRAPH SCALE OPERATOR Gender Identity Female 08/31/2018 9:15 AM SHADOWGRAPH SCALE OPERATOR Sexual Orientation Not on file documented as of this encounter Plan of Treatment Upcoming Encounters Date Type Department Care Team (Latest Contact Info) Description 05/25/2025 9:16 AM CDT Hospital Encounter [facility] Operating Room [address] [address] [address] Roshni Agosto MD [address] [place] [address] 05/25/2025 9:16 AM CDT - 05/25/2025 11:46 AM CDT Surgery [facility] Operating Room [address] [address] [address] Roshni Agosto MD [address] [place] [address] EXCHANGE IMPLANT BREAST Scheduled Procedures Name Priority [...] AM CDT documented as of this encounter Procedures Procedure Name Priority Date/Time Associated Diagnosis Comments SCAN - LABS 10/07/2016 12:00 AM SHADOWGRAPH SCALE OPERATOR CARDIOLOGY REPORT 10/07/2016 12: 00 AM SHADOWGRAPH SCALE OPERATOR documented in this encounter Results * SCAN - LABS (10/07/2016 12:00 AM SHADOWGRAPH SCALE OPERATOR) Narrative 10/07/2016 12:00 AM SHADOWGRAPH SCALE OPERATOR Ordered by an unspecified provider. us Historical Provider Final Res ult * CARDIOLOGY REPORT (10/07/2016 12:00 AM SHADOWGRAPH SCALE OPERATOR) Anatomical Region Laterality Modality Other Narrative 10/07/2016 12:00 AM SHADOWGRAPH SCALE OPERATOR Ordered by an unspecified provider. us Historical Provider [facility] MALIK ADAMS Final Result documented in this encounter Visit Diagnoses Not on filedocumented in this encounter Additional Health Concerns Infection Onset Date Last Indicated Resolved Time COVID: Suspected 05/07/2024 05/07/2024 05/07/2024 3:49 PM CDT COVID: Suspected 05/31/2024 05/31/2024 05/31/2024 2:51 PM CDT documented as of this encounter Care Teams Telephone Mechanic Relationship Specialty Start Date End Date Lukas Melchor MD [address] [facility] [address] [place] [address] PCP - General 12/02/17 12/08/20 Kiran Warren PA [facility] [place] [address] [address] [place] [address] PCP - General 12/09/20 Janeth Granados LPN [address] [place] [address] [address] [place] [address] Director On Air 03/03/19 03/03/19 Nicole Menon NP [address] [place] [address] Obstetrics and Gynecology 12/25/22 Alda Meza NP [facility]0 [facility] [address] [place] [address] Nurse Practitioner Orthopedic Surgery 12/25/22 Reno Lehman MD [facility]0 [facility] [address] [place] [address] Consulting Physician Psychiatry 12/25/22 documented as of this encounter
--- OUTSIDE RECORDS SUMMARY | 2025-03-07 17:52 | XMS_ITS | Clinical Summary ---
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 Dustin Calcium 9.5 8.6 - 10.4 mg/dL [facility] BasharJobsShiprock[facility] Dustin Protein, sr 6.9 6.1 - 8.1 g/dL [facility] Dustin Albumin 4.3 3.6 - 5.1 g/dL [facility] BasharJobs-[facility] Dustin GLOBULIN 2.6 1.9 - 3.7 g/dL (calc) [facility] BasharJobs-[facility] Dustin Alb/glob ratio 1.7 1.0 - 2.5 (calc) [facility] Dustin Bilirubin, total 0.3 0.2 - 1.2 mg/dL [facility] BasharJobsShiprock[facility] Dustin Alk phos 80 37 - 153 U/L AuthorBeeShiprock[facility] Dustin AST 28 10 - 35 U/L [facility] Babel StreetS linda Chan ALT (SGPT) 28 6 - 29 U/L [facility] 12/18/2024 7:16 AM CDT 12/18/2024 7:17 AM CDT Narrative GENOVEVA - 12/19/2024 4:28 AM CDT FASTING:YES FASTING: YES us Kiran THAPA LAB BLOOD ORDERABLES Fi nal Result [facility] [address] [place] [address] * [place] ARTHROCENTESIS ASPIR&/INJ MAJOR JT/BURSA W/O US (12/07/2024 10:00 AM CDT) Alda Dutta NP - 12/07/2024 10:00 AM CDT Alda Meza NP 12/07/2024 11:53 AM Large Joint (Hip, Knee, Shoulder) Injection: L knee Performed by: Alda Meza NP Authorized by: Alda Meza NP Large Joint Injection/Aspiration: Consent Given by: Patient Site marked: the procedure site was marked Timeout: prior to procedure the correct patient, procedure, and site was verified Verbal consent obtained: Yes Supporting Documentation: Indications: Pain Procedure Details: Location: Knee Site: L knee Prep: patient was prepped using a clean technique Needle Size: 22 G Approach: Lateral Ultrasound guided: No Fluroscopic guidance: No Medications: 32 mg triamcinolone acetonide extended release 32 mg Patient tolerance: Patient tolerated the procedure well with no immediate complications us Alda Meza NP IN CLINIC/BEDSIDE ORDERABLE S Final Result * [place] ARTHROCENTESIS ASPIR&/INJ MAJOR JT/BURSA W/O US (12/07/2024 10:00 AM CDT) Alda Dutta NP - 12/07/2024 10:00 AM CDT Alda Meza NP 12/07/2024 11:53 AM Large Joint (Hip, Knee, Shoulder) Injection: R knee Performed by: Alda Meza NP Authorized by: Alda Meza NP Large Joint Injection/Aspiration: Consent Given by: Patient Site marked: the procedure site was marked Timeout: prior to procedure the correct patient, procedure, and site was verified Verbal consent obtained: Yes Supporting Documentation: Indications: Pain Procedure Details: Location: Knee Site: R knee Prep: patient was prepped using a clean technique Needle Size: 22 G Approach: Medial Ultrasound guided: No Fluroscopic guidance: No Medications: 32 mg triamcinolone acetonide extended release 32 mg Patient tolerance: Patient tolerated the procedure well with no immediate complications Alda Meza MANAGER E COMMERCE IN CLINIC/BEDSIDE ORDERABLE S Final Result * High Risk HPV DNA Detection with Genotyping (Molecular component) (07/20/2024 1:07 PM CDT) HPV HR 16 Not Detected Not Detected [facility] Comment:Testing performed by : [facility], [address] [place] [address], [address] HPV HR 18 Not Detected Not Detected JERAMY Comment:Testing performed by : [facility], [address] [facility], [address] HPV HR Non 16/18 Not Detected Not Detected JERAMY Comment: Interpretive Data Nucleic acid amplification for detection of high-risk Human Papilloma virus (HPV) is performed by the Mayela Romy 6800 HPV test. This assay specifically detects HPV-16 and HPV-18 genotypes. The following HPV genotypes are detected as high-risk HPV: HPV-31, 33, 35, ,39, 45, 51, 52, 56, 58, 59, 66, and 68. This assay has been approved by the [place] Food and Drug Administration for detection of HPV in cervical specimens collected by a physician using an endocervical brush/spatula or cervical broom and placed in the ThinPrep Pap Test PreservCyt collection containers. The performance characteristics of this test have been verified by the [facility] Molecular Infectious Disease laboratory. Correlate with separately reported cytology results, as applicable. Interpretive data last revised 23 Testing performed by: [facility], [address] [facility], [address] Endocervical 07/20/2024 1:07 PM CDT 07/24/2024 8:38 AM 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 Narrative JERAMY - 07/25/2024 5:06 AM 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 Clinical history and diagnosis->routine Number of vials->1 Testing type->Screening Last menstrual period (date if known)->07/07/2024 Sharmila Shell NP LAB BODY FLUIDS AND STOOLS O RDERABLES Final Result JERAMY [address] [facility] Department [place] [address] [facility] * Diagnostic Mammogram Bilateral W Fabricio (06/21/2024 3:08 PM CDT) Anatomical Region Laterality Modality Breast Bilateral Mammography us Kiran THAPA IMG MAMMO PROCEDURES Fi nal Result * Colonoscopy (11/22/2023 8:18 AM 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) Anatomical Region Laterality Modality Other Narrative Procedure Note Ced Manzo MD - 11/22/2023 8:18 AM CST [facility] GI ENDOSCOPY Patient Name: Cira Orozco Procedure Date: 11/22/2023 8:18 AM Date of : 1975 Admit Type: Outpatient Age: 48 Gender: Female Attending MD: Ced Manzo M.D. Room: [facility] ENDOSCOPY ROOM 06 Note Status: Finalized Procedure: Colonoscopy Indications: Screening for colorectal malignant neoplasm Referring MD: Kiran Warren PA-C Providers: Ced Manzo M.D. Medicines: Monitored Anesthesia Care Complications: No immediate complications. Estimated Blood Loss: Estimated blood loss: none. Procedure: Pre-Anesthesia Assessment: - Prior to the procedure, a History and Physicalwas performed, and patient medications and allergieswere reviewed. The risks and benefits of the procedureand the sedation options and risks were discussed withthe patient. All questions were answered and informed consent was obtained. Patient identification and proposed procedure were verified. After reviewingthe risks and benefits, the patient was deemed in satisfactory condition to undergo the procedure.The anesthesia plan was to use monitored anesthesiacare (MAC). Immediately prior to administration of medications, the patient was re-assessed foradequacy to receive sedatives. The heart rate, respiratory rate, oxygen saturations, blood pressure, adequacyof pulmonary ventilation, and response to care were monitored throughout the procedure. The physical status of the patient was re-assessed after the procedure. The benefits, risks and alternatives of theprocedure and sedation were discussed and informed consentwas obtained. All questions were answered. Please referto the signed informed consent document in the medical record. The scope was passed under direct vision.The [id number] colonoscope was introduced through theanus and advanced to the terminal ileum. The colonoscopy was performed without difficulty. The patient tolerated the procedure well. The quality of thebowel preparation was fair. Scope withdrawal time was 10 minutes. Prep was administered in a split dose. Findings: The perianal and digital rectal examinations were normal. A diminutive polyp was found in the ascending colon. The polyp was removed with a cold biopsy forceps. Resection and retrieval were complete. A 10 mm polyp was found in the splenic flexure. The polyp wassessile. The polyp was removed with a hot snare. Resection and retrieval were complete. Non-bleeding internal hemorrhoids were found during retroflexion. The hemorrhoids were small. The exam was otherwise without abnormality. Biopsies for histology were taken with a cold forceps from the right colon and left colon for evaluation of microscopic colitis. Impression: - Preparation of the colon was fair. - One diminutive polyp in the ascending colon,removed with a cold biopsy forceps. Resected andretrieved. - One 10 mm polyp at the splenic flexure, removedwith a hot snare. Resected and retrieved. - Non-bleeding internal hemorrhoids. - The examination was otherwise normal. - Biopsies were taken with a cold forceps from the right colon and left colon for evaluation of microscopic colitis. Recommendation: - Patient has a contact number available for emergencies. The signs and symptoms of potential delayed complications were discussed with thepatient. Return to normal activities tomorrow. Written discharge instructions were provided to thepatient. - High fiber diet. - Continue present medications. - Await pathology results. - Repeat colonoscopy in 3 years for surveillance. - Return to GI clinic as previously scheduled. Ced Manzo M.D. Ced Manzo M.D. 11/22/2023 8:49:16 AM . Number of Addenda: 0 Note Initiated On: 11/22/2023 8:18 AM Recognized by the [place] [employer] for promoting quality in endoscopy Ced Manzo MD ENDOSCOPY PROCEDURES Final Resul t * Hepatitis C antibody (04/29/2017 11:05 AM CDT) Hep C Ab NONREACT NONREACTIVE Comment: Siemens CentaurXP using LANCE (chemiluminescent immunoassay) technology. NONREACTIVE: Antibodies to Hepatitis C not detected. This does not exclude early acute Hepatitis C infection, possibility of exposure to Hepatitis C, antibodies below detection limit, or to lack of antibody reactivity to the antigen used in this assay. EQUIVOCAL: Antibodies to Hepatitis C may or may not be present. Sample to be confirmed by real-time PCR method. REACTIVE: Antibodies to Hepatitis C detected. 04/29/2017 11:0 5 AM CDT 04/29/2017 11:12 AM CDT us Gabino Vázquez MD LAB MICROBIOLOGY - GENERAL ORDERABLES Final Result [facility] HISTORICAL RESULTS from Last 3 Months or Most Recently Relevant to Health Maintenance Additional Health Concerns Active Problems Noted Date [...] fear of superficial talk, like at a democrat, given I don't work, I don't know [...] initiating or maintaining sleep Autogenerated Problem 02/26/2025 Insurance MEDICARE [facility] MEDICARE [employer] [address] [place] [id number] MEDICARE [employer] WORKERS COMPENSATION GENERIC WORKERS COMPENSATION GENERIC Advance Directives For more information, please contact: [phone] * Full Code (Latest Code Status on File) Date Activated Date Inactivated Comments 06/01/2024 12:41 AM 06/01/2024 8:33 PM Care Teams Farm Machinery Mechanic Relationship Specialty Start Date End Date Kiran Warren PA [address] [address] PCP - General 12/09/20 Nicole Menon NP [address] [place] [address] Obstetrics and Gynecology 12/25/22 Alda Meza NP [address] [address] Nurse Practitioner Orthopedic Surgery 12/25/22 Reno Lehman MD [facility] [facility] [address] [place] [address] Consulting Physician Psychiatry 12/25/22
--- OUTSIDE RECORDS SUMMARY | 2025-03-07 17:52 | XMS_ITS | Encounter Summary ---
Author Organization [facility] Healthcare Address [address] [place] [address] Care Team Providers Care Bond Manager Name Role Phone Kiran Warren Primary Care Provider Nicole Menon TOMOGRAPHY TECHNOLOGIST Unavailable Alda Meza NP Unavailable [phone] Reno Lehman MD Unavailable [phone] Encounter Details Date Type Department Care Team (Late st Contact Info) Description 05/26/2022 Telephone [facility] [address] [place] [address] Pamela Aguilar Social History Tobacco Use Types Packs/Day Years Used Date Smoking Tobacco: Never Smokeless Tobacco: Never Alcohol Use Standard Drinks/Week Comments Not Currently 0 (1 standard drink = 0.6 oz pur e alcohol) PHQ-2 Answer Date Recorded PHQ-2 Total Score (If total score is 3 or more points, staff should administer the PHQ-9) 4 07/28/2021 Comments No Sex and Gender Information Value Date Recorded Sex Assigned at Not on file Legal Sex Female 7:53 PM LAUNDRY BAG PUNCH OPERATOR Gender Identity Female 08/31/2018 9:15 AM LAUNDRY BAG PUNCH OPERATOR Sexual Orientation Not on file Occupation Industry Job Start Date Job End Date Disabled Not on file Not on file Not on file documented as of this encounter Plan of Treatment Upcoming Encounters Date Type Department Care Team (Latest Contact Info) Description 05/25/2025 9:16 AM CDT Hospital Encounter [facility] Operating Room [address] Sandra BUNN, ALEJANDRA [address] Roshni Agosto MD [address] [place] [address] 05/25/2025 9:16 AM CDT - 05/25/2025 11:46 AM CDT Surgery [facility] Operating Room [address] ALEJANDRA Caball[place] [address] Roshni Agosto MD [address] [place], [place] [id number] EXCHANGE IMPLANT BREAST Scheduled Procedures Name Priority [...] AM CDT documented as of this encounter Visit Diagnoses [...] of Anxiety as between 5 and 9. [facility] Goal/Discharge Criteria: Pt to early-identify thought/feeling triggers [...] intensity level ranging between 5 and 9. [facility] Goal/Discharge Criteria: Pt to early-identify thought/feeling triggers [...] Persistent disorder of initiating or maintaining sleep Infection Onset Date Last Indicated Resolved Time COVID: Suspected 05/07/2024 05/07/2024 05/07/2024 3:49 PM CDT COVID: Suspected 05/31/2024 05/31/2024 05/31/2024 2:51 PM CDT documented as of this encounter Care Teams Bond Manager Relationship Specialty Start Date End Date Kiran Warren PA [facility] [place] [id number] PCP - General 12/09/20 Nicole Menon NP [address] [place] [address] Obstetrics and Gynecology 12/25/22 Alda Meza NP [address] [facility] [address] [place] [address] Nurse Practitioner Orthopedic Surgery 12/25/22 Reno Lehman MD [address] [facility] [address] [place] [address] Consulting Physician Psychiatry 12/25/22 documented as of this encounter
--- OUTSIDE RECORDS SUMMARY | 2025-03-07 17:52 | XMS_ITS | Encounter Summary ---
Author Organization [facility] Facility Care Team Providers Care Breakdown Man Name Role Phone Lukas Melchor MD Primary Care Provi gabriel Janeth Granados LPN Unavailable [phone] Kiran Warren Primary Care Provider Nicole Menon ICE CREAM MAKER Unavailable Alda Meza ICE CREAM MAKER Unavailable [phone] Reno Lehman MD Unavailable [phone] Encounter Details Date Type Department Care Team (Latest Contact Info) Description 04/29/2017 Orders Only [facility] CLINCONV Provider, MD [place] [address] [place] [address] Social History Tobacco Use Types Packs/Day Years Used Date Smoking Tobacco: Never Comments Unknown Sex and Gender Information Value Date Recorded Sex Assigned at Not on file Legal Sex Female 7:53 PM INVESTIGATION DIVISION CAPTAIN Gender Identity Female 08/31/2018 9:15 AM INVESTIGATION DIVISION CAPTAIN Sexual Orientation Not on file documented as of this encounter Plan of Treatment Upcoming Encounters Date Type Department Care Team (Latest Contact Info) Description 05/25/2025 9:16 AM CDT Hospital Encounter [facility] Operating Room [address] A[place]A [address] [address] Roshni Agosto MD [address] [place] [address] 05/25/2025 9:16 AM CDT - 05/25/2025 11:46 AM CDT Surgery [facility] Operating Room [address] [place] [address] [address] Roshni Agosto MD [address] [place] [address] EXCHANGE IMPLANT BREAST Scheduled Procedures Name Priority [...] Date/Time Associated Diagnosis Comments SCAN - LABS 04/29/2017 12:00 AM CDT documented in this encounter Results * SCAN - LABS (04/29/2017 12:00 AM CDT) Narrative 04/29/2017 12:00 AM CDT Ordered by an unspecified provider. Historical Provider Final Res ult documented in this encounter Visit Diagnoses Not on filedocumented in this encounter Additional Health Concerns Infection Onset Date Last Indicated Resolved Time COVID: Suspected 05/07/2024 05/07/2024 05/07/2024 3:49 PM CDT COVID: Suspected 05/31/2024 05/31/2024 05/31/2024 2:51 PM CDT documented as of this encounter Care Teams Breakdown Man Relationship Specialty Start Date End Date Lukas Melchor MD [address] [address] PCP - General 12/02/17 12/08/20 Kiran Warren PA [address] [facility] [address] [place] [id number] PCP - General 12/09/20 Janeth Granados, DIE FINISHER [address] [facility] [facility] [address] [place] [address] Piece Work Inspector 03/03/19 03/03/19 Nicole Menon NP [address] [place] [address] Obstetrics and Gynecology 12/25/22 Alda Meza NP [address] [facility] [address] [place] [address] Nurse Practitioner Orthopedic Surgery 12/25/22 Reno Lehman MD [address] [facility] [address] [place] [address] Consulting Physician Psychiatry 12/25/22 documented as of this encounter
--- OUTSIDE RECORDS SUMMARY | 2025-03-07 17:52 | XMS_ITS | Encounter Summary ---
Author Organization [facility] Healthcare Address [address] [place] [address] Care Team Providers Care Emergency Specialist Name Role Phone Kiran Warren Primary Care Provider Nicole Menon STEAMBOAT INSPECTOR Unavailable Alda Meza NP Unavailable [phone] Reno Lehman MD Unavailable [phone] Reason for Visit * Reason Onset Date Comments doctor visit 10/16/2022 Left voicemail t hat we will call back about getting her reschedule for Wednesday or Saturday 10/21 or 10/23 Encounter Details Date Type Department Care Team (Late st Contact Info) Description 10/16/2022 Telephone [facility] [address] [place] [address] Janet Pelletier [facility] [address] [place] [address] doctor visit (Left voicemail that we will call back about getting her reschedule for Wednesday or Saturday 10/21 or 10/23) Social History Tobacco Use Types Packs/Day Years [...] on file Legal Sex Female 7:53 PM DIALYSIS EQUIPMENT TECHNICIAN Gender Identity Female 08/31/2018 9:15 AM DIALYSIS EQUIPMENT TECHNICIAN Sexual Orientation Not on file Occupation Industry Job Start Date Job End Date Disabled Not on file Not on file Not on file documented as of this encounter Plan of Treatment Upcoming Encounters Date Type Department Care Team (Latest Contact Info) Description 05/25/2025 9:16 AM CDT Hospital Encounter [facility] Operating Room [id number] [place] [address] Roshni Agosto MD [address] [place] [address] 05/25/2025 9:16 AM CDT - 05/25/2025 11:46 AM CDT Surgery [facility] Operating Room [address] [place] [address] Roshni Agosto MD [address] [place], [place] [id number] EXCHANGE IMPLANT BREAST Scheduled Procedures Name Priority [...] family members, friends, others) No Johnna Rogers, MANAGER INTEGRATED Note: Extended to 07/17/2022 Revised Expected End [...] of Anxiety as between 5 and 9. Chief Mate Goal/Discharge Criteria: Pt to early-identify thought/feeling triggers [...] intensity level ranging between 5 and 9. Chief Mate Goal/Discharge Criteria: Pt to early-identify thought/feeling triggers [...] documented as of this encounter Care Teams Emergency Specialist Relationship Specialty Start Date End Date Kiran Warren PA [address] [address] PCP - General 12/09/20 Nicole Menon NP [address] [place] [address] [id number] Obstetrics and Gynecology 12/25/22 Alda Meza NP [address] [address] Nurse Practitioner Orthopedic Surgery 12/25/22 Reno Lehman MD [address] [facility] [place] [address] Consulting Physician Psychiatry 12/25/22 documented as of this encounter
--- OUTSIDE RECORDS SUMMARY | 2025-03-07 17:52 | XMS_ITS | Encounter Summary ---
Author Organization [facility] Facility Care Team Providers Care Aircraft Sheet Metal Mechanic Name Role Phone Lukas Melchor MD Primary Care Provi gabriel Janeth Granados LPN Unavailable [phone] Kiran Warren Primary Care Provider Nicole Menon ENTRY LEVEL WEB DEVELOPER Unavailable Alda Meza ENTRY LEVEL WEB DEVELOPER Unavailable [phone] Reno Lehman MD Unavailable [phone] Encounter Details Date Type Department Care Team (Latest Contact Info) Description 02/14/2014 Orders Only [facility] Provider, MD Addison [address] [place] [id number] Social History Tobacco Use Types Packs/Day Years Used Date Smoking Tobacco: Never Comments Unknown Sex and Gender Information Value Date Recorded Sex Assigned at Not on file Legal Sex Female 7:53 PM PROMOTIONS REPRESENTATIVE Gender Identity Female 08/31/2018 9:15 AM PROMOTIONS REPRESENTATIVE Sexual Orientation Not on file documented as of this encounter Plan of Treatment Upcoming Encounters Date Type Department Care Team (Latest Contact Info) Description 05/25/2025 9:16 AM CDT Hospital Encounter [facility] Operating Room [id number] [address] Roshni Agosto MD [address] [place] [address] 05/25/2025 9:16 AM CDT - 05/25/2025 11:46 AM CDT Surgery [facility] Operating Room [address] [address] [id number] Roshni Agosto MD [address] [place] [address] EXCHANGE IMPLANT BREAST Scheduled Procedures Name Priority [...] Procedure Name Priority Date/Time Associated Diagnosis Comments CARDIOLOGY REPORT 10/07/2016 12: 00 AM PROMOTIONS REPRESENTATIVE documented in this encounter Results * CARDIOLOGY REPORT (10/07/2016 12:00 AM PROMOTIONS REPRESENTATIVE) Anatomical Region Laterality Modality Other Narrative 10/07/2016 12:00 AM PROMOTIONS REPRESENTATIVE Ordered by an unspecified provider. Historical Provider [facility] MALIK ADAMS Final Result documented in this encounter Visit Diagnoses Not on filedocumented in this encounter Additional Health Concerns Infection Onset Date Last Indicated Resolved Time COVID: Suspected 05/07/2024 05/07/2024 05/07/2024 3:49 PM CDT COVID: Suspected 05/31/2024 05/31/2024 05/31/2024 2:51 PM CDT documented as of this encounter Care Teams Aircraft Sheet Metal Mechanic Relationship Specialty Start Date End Date Lukas Melchor MD [address] [place] [address] PCP - General 12/02/17 12/08/20 Kiran Warren PA [address] [place] [address] [place] [id number] PCP - General 12/09/20 Janeth Granados, FRUIT PACKER [address] [place] [address] [address] [place] [address] Direct Support Professional Home Health 03/03/19 03/03/19 Nicole Menon NP [address] [place] [address] Obstetrics and Gynecology 12/25/22 Alda Meza NP [address] [facility] [address] [place] [address] Nurse Practitioner Orthopedic Surgery 12/25/22 Reno Lehman MD [address] [facility] [address] [place] [id number] Consulting Physician Psychiatry 12/25/22 documented as of this encounter
--- OUTSIDE RECORDS SUMMARY | 2025-03-07 17:52 | XMS_ITS | Referral Summary ---
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 12/18/2024 7:16 AM CDT 12/18/2024 7:17 AM CDT Narrative [facility] - 12/19/2024 4:28 AM CDT FASTING:YES FASTING: YES us Kiran THAPA LAB BLOOD ORDERABLES Fi nal Result [facility] [address] [place] [address] * CBC with auto differential (12/18/2024 7:16 AM CDT) [facility] WBC 8.2 3.8 - 10.8 Thousand/u L [facility] RBC, POC 4.52 3.80 - 5.10 Million/uL [facility] Hgb 13.3 11.7 - 15.5 g/dL [facility] Hct 40.6 35.0 - 45.0 % [facility] MCV 89.8 80.0 - 100.0 fL [facility] MCH 29.4 27.0 - 33.0 pg [facility] MCHC 32.8 32.0 - 36.0 g/dL [facility] Comment: For adults, a slight decrease in the calculated MCHC value (in the range of 30 to 32 g/dL) is most likely not clinically significant; however, it should be interpreted with caution in correlation with other red cell parameters and the patient's clinical condition. Rdw 13.1 11.0 - 15.0 % [facility] Platelets 255 140 - 400 Thousand/u L [facility] MPV 11.5 7.5 - 12.5 fL [facility] Neutrophils, abs 4,649 1,500 - 7,800 cells/uL [facility] Lymphocytes, abs 2,411 850 - 3,900 cells/uL [facility] Monocyte abs 631 200 - 950 cells/uL [facility] Eosinophils, abs 459 15 - 500 cells/uL [facility] Basophils, abs 49 0 - 200 cells/uL [facility] Neutrophils 56.7 % [facility] Lymphocyte pct 29.4 % [facility] Monocytes 7.7 % [facility] Eosinophils 5.6 % [facility] Basophils 0.6 % [facility] Blood 12/18/2024 7:16 AM CDT 12/18/2024 7:17 AM CDT Narrative [facility] - 12/19/2024 4:28 AM CDT FASTING:YES FASTING: YES us Kiran THAPA LAB BLOOD ORDERABLES Fi nal Result [facility] [address] [place] [address] * (ABNORMAL) Albumin Creatinine Ratio, Urine (12/18/2024 [...] AM CDT 12/18/2024 7:17 AM CDT Narrative [facility] - 12/19/2024 4:28 AM CDT FASTING:YES FASTING: YES Kiran THAPA LAB URINE ORDERABLES nal Result [facility] [address] [place] [address] * (ABNORMAL) Hemoglobin A1c (12/18/2024 7:16 AM [...] LAB BLOOD ORDERABLES Fi nal Result GENOVEVA [facility] [address] [place] [address] * (ABNORMAL) Lipid panel (12/18/2024 7:16 AM CDT) Cholesterol 234(H) <200 mg/dL [facility] HDL 49(L) > OR = 50 mg/dL [facility] Triglycerides 517(H) <150 mg/dL [facility] Comment: If a non-fasting specimen [...] of Clin. Lipidol. 2015;9:129-169. LDL mg/dL (calc) [facility] Comment: LDL cholesterol not calculated. Triglyceride [...] LDL-C. Sukhdev SS et al. PAIGE. 2013;310(19): 7229-5115 (http://education.Zackfire.com/faq/PWG090) Chol/HDL ratio 4.8 <5.0 (calc) [facility] Non-HDL, (LDL+VLDL) 185(H) <130 mg/dL (calc) [facility] Comment: For patients with diabetes plus 1 major ASCVD risk factor, treating to a non-HDL-C goal of <100 mg/dL (LDL-C of <70 mg/dL) is considered a therapeutic option. 12/18/2024 7:16 AM CDT 12/18/2024 7:17 AM CDT Narrative [facility] - 12/19/2024 4:28 AM CDT FASTING:YES FASTING: YES us Kiran THAPA LAB BLOOD ORDERABLES Fi nal Result [facility] [address] [place] [address] * (ABNORMAL) Comprehensive metabolic panel (12/18/2024 7:16 AM CDT) [facility] [place] Glucose 218(H) 65 - 99 mg/dL [facility] Dustin Comment: Fasting reference interval For someone without known diabetes, a glucose value >125 mg/dL indicates that they may have diabetes and this should be confirmed with a follow-up test. BUN 16 7 - 25 mg/dL [facility] Creatinine 0.87 0.50 - 1.03 mg/dL [facility] Dustin eGFR 81 > OR = 60 mL/min/1.7 3m2 [facility] Dustin BUN/creat ratio SEE NOTE: 6 - 22 (calc) [facility] Dustin Comment: Not Reported: BUN and Creatinine are within reference range. Sodium 137 135 - 146 mmol/L [facility] Dustin Potassium, pl 4.7 3.5 - 5.3 mmol/L [facility] Chloride 96(L) 98 - 110 mmol/L [facility] CO2 32 20 - 32 mmol/L [facility] Calcium 9.5 8.6 - 10.4 mg/dL [facility] Protein, sr 6.9 6.1 - 8.1 g/dL [facility] Albumin 4.3 3.6 - 5.1 g/dL [facility] Dustin GLOBULIN 2.6 1.9 - 3.7 g/dL (calc) [facility] Dustin Alb/glob ratio 1.7 1.0 - 2.5 (calc) [facility] Bilirubin, total 0.3 0.2 - 1.2 mg/dL [facility] Alk phos 80 37 - 153 U/L [facility] AST 28 10 - 35 U/L [facility] Chan ALT (SGPT) 28 6 - 29 U/L [facility] Chan 12/18/2024 7:16 AM CDT 12/18/2024 7:17 AM CDT Yolanda TOMAS - 12/19/2024 4:28 AM CDT FASTING:YES FASTING: YES us Kiran THAPA LAB BLOOD ORDERABLES Fi nal Result GENOVEVA [facility] [address] [place] [address] * OK ARTHROCENTESIS ASPIR&/INJ MAJOR JT/BURSA W/O US (12/07/2024 [...] IN CLINIC/BEDSIDE ORDERABLE S Final Result * OK ARTHROCENTESIS ASPIR&/INJ MAJOR JT/BURSA W/O US (12/07/2024 [...] well with no immediate complications Alda Meza NP IN CLINIC/BEDSIDE ORDERABLE S Final Result * High Risk HPV DNA Detection with Genotyping (Molecular component) (07/20/2024 1:07 PM CDT) HPV HR 16 Not Detected Not Detected [facility] Comment:Testing performed by : [facility], [address] [place] [address], [address] HPV HR 18 Not Detected Not Detected JERAMY Comment:Testing performed by : [facility], [address] [facility], [address] HPV HR Non 16/18 Not Detected Not [...] this test have been verified by the [facility] Molecular Infectious Disease laboratory. Correlate with separately reported cytology results, as applicable. Interpretive data last revised 23 Testing performed by: [facility], [address] [place] [address], [address] Endocervical 07/20/2024 1:07 PM CDT 07/24/2024 8:38 AM CERTIFIED ATHLETIC TRAINER Narrative JERAMY - 07/25/2024 5:06 AM CERTIFIED ATHLETIC TRAINER Clinical history and diagnosis->routine Number of vials->1 Testing type->Screening Last menstrual period (date if known)->07/07/2024 us Sharmila Shell SUPPORT SERVICES COORDINATOR LAB BODY FLUIDS AND STOOLS O RDERABLES Final Result JERAMY [address] [facility] Department [place] [address] [facility] * Diagnostic Mammogram Bilateral W Fabricio (06/21/2024 3:08 PM CDT) Anatomical Region Laterality Modality Breast Bilateral Mammography us Kiran THAPA IMG MAMMO PROCEDURES Fi nal Result * Colonoscopy (11/22/2023 8:18 AM CERTIFIED ATHLETIC TRAINER) Anatomical Region Laterality Modality Other Narrative Procedure Note Ced Manzo MD - 11/22/2023 8:18 AM CST [facility] GI ENDOSCOPY Patient Name: Cira Orozco Procedure Date: 11/22/2023 8:18 AM Date of : 1975 Admit Type: Outpatient Age: 48 Gender: Female Attending MD: Ced Manzo M.D. Room: [facility] ENDOSCOPY ROOM 06 Note Status: Finalized [...] The scope was passed under direct vision.The PCF-CI601K colonoscope was introduced through theanus and advanced [...] On: 11/22/2023 8:18 AM Recognized by the [employer] for promoting quality in endoscopy Ced Manzo MD ENDOSCOPY PROCEDURES Final Resul t * Hepatitis C antibody (04/29/2017 11:05 AM CDT) Hep C Ab NONREACT NONREACTIVE 04/29/2017 2:[address] [facility] HISTORICAL RESULTS Comment: [employer] using LANCE (chemiluminescent immunoassay) technology. NONREACTIVE: Antibodies [...] of Anxiety as between 5 and 9. Acetaldehyde Converter Operator Goal/Discharge Criteria: Pt to early-identify thought/feeling [...] intensity level ranging between 5 and 9. Acetaldehyde Converter Operator Goal/Discharge Criteria: Pt to early-identify thought/feeling [...] maintaining sleep Autogenerated Problem 02/26/2025 Insurance MEDICARE [facility] MEDICARE [employer] [address] [place] [phone] MEDICARE [employer] WORKERS COMPENSATION GENERIC WORKERS COMPENSATION GENERIC Advance Directives For more information, please contact: [phone] * Full Code (Latest Code Status on File) Date Activated Date Inactivated Comments 06/01/2024 12:41 AM 06/01/2024 8:33 PM Care Teams Facilities Maintenance Technician Relationship Specialty Start Date End Date Kiran Warren PA [address] [place] [id number] PCP - General 12/09/20 Nicole Menon NP [address] [place] [address] Obstetrics and Gynecology 12/25/22 Alda Meza NP [address] [address] Nurse Practitioner Orthopedic Surgery 12/25/22 Reno Lehman MD [address] [facility] [address] Consulting Physician Psychiatry 12/25/22
--- OUTSIDE RECORDS SUMMARY | 2025-03-07 17:52 | XMS_ITS | Encounter Summary ---
Author Organization [facility] Healthcare Address [address] [place] [address] Care Team Providers Care Building Pressure Washer Name Role Phone Kiran Warren Primary Care Provider Nicole Menon CLINICAL DATA RESEARCH Unavailable Alda Meza NP Unavailable [phone] Reno Lehman MD Unavailable [phone] Encounter Details Date Type Department Care Team (Late st Contact Info) Description 09/25/2022 Telephone [facility] [address] [place] [address] Janet Pelletier, [facility] [address] [place] [address] Social History Tobacco Use Types Packs/Day Years [...] on file Legal Sex Female 7:53 PM VERIFY REP Gender Identity Female 08/31/2018 9:15 AM VERIFY REP Sexual Orientation Not on file Occupation Industry Job Start Date Job End Date Disabled Not on file Not on file Not on file documented as of this encounter Plan of Treatment Upcoming Encounters Date Type Department Care Team (Latest Contact Info) Description 05/25/2025 9:16 AM CDT Hospital Encounter [facility] Operating Room [address] [address] [address] Roshni Agosto MD [address] [place] [address] 05/25/2025 9:16 AM CDT - 05/25/2025 11:46 AM CDT Surgery [facility] Operating Room [address] [address] [address] Roshni Agosto MD [address] [place] [address] EXCHANGE IMPLANT BREAST Scheduled Procedures Name Priority [...] Problems with Health Conditions No Johnna Rogers, CALL CENTER OPERATOR Note: Extended to 07/17/2022 Revised Expected End [...] family members, friends, others) No Johnna Rogers, SHERYL Note: Extended to [...] of Anxiety as between 5 and 9. Usp Goal/Discharge Criteria: Pt to early-identify thought/feeling triggers [...] intensity level ranging between 5 and 9. Helminthology Teacher Goal/Discharge Criteria: Pt to early-identify thought/feeling triggers [...] documented as of this encounter Care Teams Building Pressure Washer Relationship Specialty Start Date End Date Kiran Warren PA [address] [place] [address] PCP - General 12/09/20 Nicole Menon NP [address] [place] [address] Obstetrics and Gynecology 12/25/22 Alda Meza NP [address] [place] [address] [address] [place] [address] Nurse Practitioner Orthopedic Surgery 12/25/22 Reno Lehman MD [address] [place] [address] DR [address] [place] [address] Consulting Physician Psychiatry 12/25/22 documented as of this encounter
--- OUTSIDE RECORDS SUMMARY | 2025-03-07 17:52 | XMS_ITS | Encounter Summary ---
Author Organization [facility] Facility Care Team Providers Care Hospital Pharmacy Director Name Role Phone Lukas Melchor MD Primary Care Provi gabriel Janeth Granados LPN Unavailable [phone] Kiran Warren Primary Care Provider Nicole Menon NECKTIES PAINTER Unavailable Alda Meza NECKTIES PAINTER Unavailable [phone] Reno Lehman MD Unavailable [phone] Encounter Details Date Type Department Care Team (Latest Contact Info) Description 11/02/2014 Orders Only [facility] CLINCONV Provider, MD [place] [address] [place] [address] Social History Tobacco Use Types Packs/Day Years Used Date Smoking Tobacco: Never Comments Unknown Sex and Gender Information Value Date Recorded Sex Assigned at Not on file Legal Sex Female 7:53 PM PSYCHOLOGICAL OPERATIONS SPECIALIST Gender Identity Female 08/31/2018 9:15 AM PSYCHOLOGICAL OPERATIONS SPECIALIST Sexual Orientation Not on file documented as of this encounter Plan of Treatment Upcoming Encounters Date Type Department Care Team (Latest Contact Info) Description 05/25/2025 9:16 AM CDT Hospital Encounter [facility] Operating Room [address] [address] [address] Roshni Agosto MD [address] [place] [address] 05/25/2025 9:16 AM CDT - 05/25/2025 11:46 AM CDT Surgery [facility] Operating Room [address] [address] [address] Roshni Agosto MD [address] [place] [address] EXCHANGE IMPLANT BREAST Scheduled Procedures Name Priority [...] Comments CARDIOLOGY REPORT 10/07/2016 12: 00 AM PSYCHOLOGICAL OPERATIONS SPECIALIST documented in this encounter Results * CARDIOLOGY REPORT (10/07/2016 12:00 AM PSYCHOLOGICAL OPERATIONS SPECIALIST) Anatomical Region Laterality Modality Other Narrative 10/07/2016 12:00 AM PSYCHOLOGICAL OPERATIONS SPECIALIST Ordered by an unspecified provider. Historical Provider [facility] CARDIAC SERVICES MALIK ADAMS Final Result documented in this encounter Visit Diagnoses Not on filedocumented in this encounter Additional Health Concerns Infection Onset Date Last Indicated Resolved Time COVID: Suspected 05/07/2024 05/07/2024 05/07/2024 3:49 PM CDT COVID: Suspected 05/31/2024 05/31/2024 05/31/2024 2:51 PM CDT documented as of this encounter Care Teams Hospital Pharmacy Director Relationship Specialty Start Date End Date Lukas Melchor MD [address] [place] [address] PCP - General 12/02/17 12/08/20 Kiran Warren PA [address] [place] [address] [place] [id number] PCP - General 12/09/20 Janeth Granados, CLINICAL INFORMATICS SPECIALIST [address] [place] [address] [address] [place] [address] Trim Installer 03/03/19 03/03/19 Nicole Menon NP [address] [place] [address] Obstetrics and Gynecology 12/25/22 Alda Meza NP [address] [facility] [address] [place] [address] Nurse Practitioner Orthopedic Surgery 12/25/22 Reno Lehman MD [address] [facility] [address] [place] [address] Consulting Physician Psychiatry 12/25/22 documented as of this encounter
--- OUTSIDE RECORDS SUMMARY | 2025-03-07 17:52 | XMS_ITS | Encounter Summary ---
Author Organization [facility] Facility Care Team Providers Care Director Radio News Name Role Phone Lukas Melchor MD Primary Care Provi gabriel Janeth Granados LPN Unavailable [phone] Kiran Warren Primary Care Provider Nicole Menon CARD CLEANER Unavailable Alda Meza CARD CLEANER Unavailable [phone] Reno Lehman MD Unavailable [phone] Encounter Details Date Type Department Care Team (Latest Contact Info) Description 02/10/2017 Orders Only [facility] CLINCONV Provider, MD Addison [address] [place] [address] Social History Tobacco Use Types Packs/Day Years Used Date Smoking Tobacco: Never Comments Unknown Sex and Gender Information Value Date Recorded Sex Assigned at Not on file Legal Sex Female 7:53 PM OUTSIDE COLLECTOR Gender Identity Female 08/31/2018 9:15 AM OUTSIDE COLLECTOR Sexual Orientation Not on file documented as of this encounter Plan of Treatment Upcoming Encounters Date Type Department Care Team (Latest Contact Info) Description 05/25/2025 9:16 AM CDT Hospital Encounter [facility] Operating Room [address] [address] [address] Roshni Agosto MD [address] [place] [address] 05/25/2025 9:16 AM CDT - 05/25/2025 11:46 AM CDT Surgery [facility] Operating Room [address] [address] [address] Roshni Agosto MD [address] [place] [address] EXCHANGE IMPLANT BREAST Scheduled Procedures Name Priority [...] Date/Time Associated Diagnosis Comments SCAN - LABS 02/26/2017 12:00 AM CDT CARDIOLOGY REPORT 02/10/2017 12: 00 AM CDT documented in this encounter Results * SCAN - LABS (02/26/2017 12:00 AM CDT) Narrative 02/26/2017 12:00 AM CDT Ordered by an unspecified provider. us Historical Provider Final Res ult * CARDIOLOGY REPORT (02/10/2017 12:00 AM CDT) Anatomical Region Laterality Modality Other Narrative 02/10/2017 12:00 AM CDT Ordered by an unspecified provider. Historical Provider CV CARDIAC SERVICES MALIK ADAMS Final Result documented in this encounter Visit Diagnoses Not on filedocumented in this encounter Additional Health Concerns Infection Onset Date Last Indicated Resolved Time COVID: Suspected 05/07/2024 05/07/2024 05/07/2024 3:49 PM CDT COVID: Suspected 05/31/2024 05/31/2024 05/31/2024 2:51 PM CDT documented as of this encounter Care Teams Director Radio News Relationship Specialty Start Date End Date Lukas Melchor MD [address] [address] [place] [address] PCP - General 12/02/17 12/08/20 Kiran Warren PA [address] [place] [address] [address] [place] [address] PCP - General 12/09/20 Janeth Granados, WHEEL MOLDER [address] [place] [address] [address] [place] [address] Quality Assurance Consultant 03/03/19 03/03/19 Nicole Menon NP [address] [place] [address] Obstetrics and Gynecology 12/25/22 Alda Meza NP [facility] [address] [place] [address] Nurse Practitioner Orthopedic Surgery 12/25/22 Reno Lehman MD [facility] [address] [place] [address] Consulting Physician Psychiatry 12/25/22 documented as of this encounter
--- OUTSIDE RECORDS SUMMARY | 2025-03-07 17:52 | XMS_ITS | Encounter Summary ---
Author Organization [facility] Facility Care Team Providers Care Gang Worker Name Role Phone Lukas Melchor MD Primary Care Provi gabriel Janeth Granados LPN Unavailable [phone] Kiran Warren Primary Care Provider Nicole Menon DIAMOND DIE DRILLER Unavailable Alda Meza DIAMOND DIE DRILLER Unavailable [phone] Reno Lehman MD Unavailable [phone] Encounter Details Date Type Department Care Team (Latest Contact Info) Description 02/14/2015 Orders Only [facility]INCON[facility] Provider, MD Addison [address] [place] [id number] Social History Tobacco Use Types Packs/Day Years Used Date Smoking Tobacco: Never Comments Unknown Sex and Gender Information Value Date Recorded Sex Assigned at Not on file Legal Sex Female 7:53 PM PLAYGROUND AIDE Gender Identity Female 08/31/2018 9:15 AM PLAYGROUND AIDE Sexual Orientation Not on file documented as of this encounter Plan of Treatment Upcoming Encounters Date Type Department Care Team (Latest Contact Info) Description 05/25/2025 9:16 AM CDT Hospital Encounter [facility] [id number] [address] [id number] Roshni Agosto MD [address] [place] [address] 05/25/2025 9:16 AM CDT - 05/25/2025 11:46 AM CDT Surgery [facility] [id number] [address] [id number] Roshni Agosto MD [address] [place] [address] EXCHANGE IMPLANT BREAST Scheduled Procedures Name Priority [...] Comments CARDIOLOGY REPORT 10/07/2016 12: 00 AM PLAYGROUND AIDE CARDIOLOGY REPORT 10/07/2016 12: 00 AM PLAYGROUND AIDE documented in this encounter Results * CARDIOLOGY REPORT (10/07/2016 12:00 AM PLAYGROUND AIDE) Anatomical Region Laterality Modality Other Narrative 10/07/2016 12:00 AM PLAYGROUND AIDE Ordered by an unspecified provider. us Historical Provider [facility] CARDIAC SERVICES PROCE DURES Final Result * CARDIOLOGY REPORT (10/07/2016 12:00 AM PLAYGROUND AIDE) Anatomical Region Laterality Modality Other Narrative 10/07/2016 12:00 AM PLAYGROUND AIDE Ordered by an unspecified provider. Historical Provider CV CARDIAC SERVICES PROCE DURES Final Result documented in this encounter Visit Diagnoses Not on filedocumented in this encounter Additional Health Concerns Infection Onset Date Last Indicated Resolved Time COVID: Suspected 05/07/2024 05/07/2024 05/07/2024 3:49 PM CDT COVID: Suspected 05/31/2024 05/31/2024 05/31/2024 2:51 PM CDT documented as of this encounter Care Teams Gang Worker Relationship Specialty Start Date End Date Lukas Melchor MD [address] [facility] [address] [place] [address] PCP - General 12/02/17 12/08/20 Kiran Warren PA [address] [facility] [address] [place] [address] PCP - General 12/09/20 Janeth Granados, LEGAL AID [address] [place] [address] [address] [place] [address] Display Card Writer 03/03/19 03/03/19 Nicole Menon NP [address] [place] [id number] Obstetrics and Gynecology 12/25/22 Alda Meza NP [facility] [address] [place] [address] Nurse Practitioner Orthopedic Surgery 12/25/22 Reno Lehman MD [facility] [facility] [address] [place] [address] Consulting Physician Psychiatry 12/25/22 documented as of this encounter
--- OUTSIDE RECORDS SUMMARY | 2025-03-07 17:52 | XMS_ITS ---
Author Organization [facility] Address [address] [place] [address] Care Team Providers Care Mergers And Acquisitions Associate Name Role Phone Kiran Warren Primary Care Provider Nicole Menon ARTIST CONSULTANT Unavailable Alda Meza NP Unavailable [phone] Reno Lehman MD Unavailable [phone] Active Problems Problem Noted Date Diagnosed Date [...] cause contact dermatitis. Recommend follow up with chef instructor Start jardiance 25mg, start 1/2 tablet x 7 days, then increase to a full tab. Recommend using flushable wet wipes to decrease risk of mycotic infection Screening for colon cancer 10/11/2023 Assessment & Plan (10/11/2023 12:39 PM VIDEO PHOTOGRAPHER): -pt states she had one done with malini garnett years ago, records requested -Schedule colonoscopy Blood in stool 10/11/2023 Assessment & Plan (10/11/2023 12:40 PM VIDEO PHOTOGRAPHER): Intermittent blood in stool, history of hemorrhoids. 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 Assessment & Plan (07/28/2021 2:20 PM VIDEO PHOTOGRAPHER): -Check in 1 year. Recommend Pap smears [...] 09/25/2019 Assessment & Plan (07/28/2021 2:20 PM VIDEO PHOTOGRAPHER): Due to increased cholesterol Need to maximize the patient's cholesterol medication, and change diet habits and exercise Patient is willing to see concrete floor installer Right upper quadrant abdominal pain 09/25/2019 Gastroesophageal reflux disease 02/16/2019 Assessment & Plan (12/22/2023 1:30 PM CDT): Stable on nexium 40mg No change to treatment Assessment & Plan (07/28/2021 2:24 PM VIDEO PHOTOGRAPHER): Stable on current dosage of nexium Uses,risks,se's discussed ALE (obstructive sleep apnea) 06/09/2018 Overview (11/27/2020): The patient to continue using CPAP at 8 cm of water. DME is [facility]. Assessment & Plan (12/22/2023 1:30 PM CDT): Continue cpap Assessment & Plan (07/28/2021 2:20 PM VIDEO PHOTOGRAPHER): Recommend continued compliance with CPAP Menopausal menorrhagia 03/18/2018 Vitamin D deficiency 03/03/2017 Assessment & Plan (12/22/2023 1:30 PM CDT): Stable vitamin d supplementation No change to treatment Assessment & Plan (07/28/2021 2:19 PM VIDEO PHOTOGRAPHER): Stable on current dosage of vitamin d cct Polydipsia 02/10/2017 Anxiety 06/04/2016 Overview (11/27/2020): Contributing to patient's sleep disturbances. Assessment & Plan (12/22/2023 1:28 PM CDT): Stable on wellbutrin, prozac and prn xanax No change to treatment Follow up with mayte Assessment & Plan (07/28/2021 2:25 PM VIDEO PHOTOGRAPHER): On xanax and wellbutrin No change to treatment Doing fair with medication Continue current dosages. Fatigue 06/04/2016 Hyperlipidemia 06/04/2016 Assessment & Plan (12/22/2023 1:29 PM CDT): Significantly elevated triglycerides. Continue fenofibrate, and statin therapy Restart omega 3 supplementation Diet and exercise Assessment & Plan (07/28/2021 2:24 PM VIDEO PHOTOGRAPHER): Not stable, very uncontrolled cholesterol. Diet vs compliance vs hereditary causes. Increase vytorin to maximize statin therapy Recommend chef instructor to follow up with allergies Hypertension 03/19/2016 Assessment & Plan (12/22/2023 1:29 PM CDT): Bp is stable on atenolol No change to treatment - DASH diet. CCT. Recommend diet and exercise. Recommend compliance with medications. Assessment & Plan (07/28/2021 2:22 PM VIDEO PHOTOGRAPHER): Stable on current dosage of home medication She is not taking coreg - DASH diet. CCT. Recommend diet and exercise. Recommend compliance with medications. Other abnormal glucose 03/19/2016 Irregular menstrual cycle 07/03/2013 Pain in female pelvis 10/21/2012 Ovarian retention cyst 09/14/2012 Current Treatment and Therapy Plans Leuprolide 28 Day Cycles - Breast* Plan Start Date:08/10/2024 Plan Provider:Jose Sutton, DO Linked Problems Malignant neoplasm of overla pping sites of left breast in female, estrogen receptor positive (HCC) Treatment Medications Current Day (Day 1 , Cycle 9 - Planned for 03/22/2025) Next Day (Day 1, Cycle 10 - Planned for 04/19/2025) leuprolide (LUPRON)leuprolid e (monthly) (LUPRON) leuprolide (LUPRON) injection 7.5 mg leuprolide (LUPRON) injection 7.5 mg Past Treatment and Therapy Plans No past plan information found. Resolved Problems Problem Noted Date Diagnosed Date Resolved Date Major depressive disorder, r ecurrent episode, moderate 03/06/2022 03/06/2022
[2025-03-07 18:03] LABS: Basophils Absolute Auto 0.1 K/mm3 (0.0-0.1); Basophils Percent Auto 0.9 % (0.2-1.2); Eosinophils Absolute Auto 0.4 K/mm3 (0-0.3); Eosinophils Percent Auto 6.3 % (0-4.4); Hematocrit 39.1 % (37.0-47.0); Hemoglobin 12.7 g/dL (12.0-15.0); Immature Granulocyte Absolute 0.05 K/mm3 (0.00-0.031); Immature Granulocyte Percent A 0.8 % (0-0.5); Lymphocytes Absolute Auto 2.54 K/mm3 (0.9-3.2); Lymphocytes Percent Auto 38.3 % (18.3-44.2); Mean Corpuscular HGB Conc 32.5 g/dl (32-36); Mean Corpuscular Hemoglobin 29.5 pg (26-34); Mean Corpuscular Volume 90.7 fl (80-100); Mean Platelet Volume 10.7 fl (7.4-10.4); Monocytes Absolute Auto 0.5 K/mm3 (0.1-0.6); Neutrophils Percent Auto 45.7 % (45.5-73.1); Platelet Count Result 222 k/mm3 (150-375); Red Blood Count 4.31 M/mm3 (4.2-5.4); Red Cell Distribution Width 13.8 % (11.5-14.5); White Blood Count 6.6 K/mm3 (4.5-10.0)
[2025-03-07 18:13] LABS: Alanine Aminotransferase 38 U/L (6-35); Albumin Level 3.9 g/dL (3.5-5.1); Alkaline Phosphatase 82 U/L (38-126); Anion Gap 7 mmol/L (4-12); Aspartate Amino Transferase 58 U/L (14-36); Bilirubin,Total 0.7 mg/dL (0.2-1.3); Blood Urea Nitrogen 12 mg/dL (7-17); Calcium 9.4 mg/dL (8.4-10.2); Carbon Dioxide 27 mmol/L (22-30); Chloride 102 mmol/L (98-107); Estimated CRCL calculation 98 ml/min; Estimated Glomerular Filt Rate > 60; Glucose 216 mg/dL (65-110); Potassium 4.6 mmol/L (3.4-5.0); Sodium 136 mmol/L (137-145); Total Protein 6.9 g/dL (6.3-8.2)
[2025-03-07] MEDS: SODIUM CHLORIDE 0.9% IV 1,000 ML 999 ML IV CONT (18:23)
[2025-03-07 19:14] VITALS: BP 124/56; O2SAT 96
[2025-03-07 19:49] VITALS: BP 104/64; O2SAT 93
[2025-03-07 20:01] VITALS: BP 103/70; O2SAT 95
[2025-03-07 20:22] VITALS: BP 110/61; PULSE 68; RESP 18; TEMP 36.9; O2SAT 95
== END 2025-03-07 20:23 | disposition home or self-care (01) ==
PROVIDERS: Emergency Medicine; Emergency Provider Emergency Medicine; PCP Physician Assistant
DX: R53.1 Weakness (principal); E11.9 Type 2 diabetes mellitus without complications; I10 Essential (primary) hypertension; E78.5 Hyperlipidemia, unspecified; G47.30 Sleep apnea, unspecified; Z99.89 Dependence on other enabling machines and devices
CPT/HCPCS: 36415; 71045; 74177; 80053; 81003; 84443; 85025; 96360; 99284; J7030; Q9967